=== PATIENT | male | born 1980 | race Caucasian/White ===

== ENCOUNTER → 2016-10-08 | Outpatient (CLI) | payer OTHER ==
[~2016-10-08] MED LIST: GABA800T PO; IBUP600T44 PO; MULT-506 PO; PREG1CAP28 PO
[2016-10-08 11:03] LABS: BASO % 0.5 %; BASO ABS # 0.02 K/uL (0-0.2); COMPLETE YES; EOS % 0.9 %; HEMATOCRIT 41.5 % (42-52); IG% 0.2 %; LYMPH % 36.5 %; LYMPH ABS # 1.54 K/uL (1.2-3.4); MEAN CELL VOLUME 85.6 fL (80-100); MEAN CORPUSCULAR HEMOGLOBIN 29.3 pg (25-34); MEAN CORPUSCULAR HGB CONC 34.2 g/dl (32-36); MEAN PLATELET VOLUME 10.8 fL (7.4-10.4); MONO % 12.6 %; NEUT % 49.3 %; PLATELET COUNT 166 K/uL (130-400); RED BLOOD COUNT 4.85 M/uL (4.7-6.1); WHITE BLOOD COUNT 4.22 K/uL (4.8-10.8)
[2016-10-08 12:50] LABS: ALB/GLOB RATIO 1.4 (0.9-2); ALKALINE PHOSPHATASE 42 U/L (45-117); ALT/SGPT 32 U/L (12-78); AST/SGOT 14 U/L (15-37); BLOOD UREA NITROGEN 16 mg/dl (7-18); BUN/CREATININE RATIO 16.1 (10-20); CALCIUM 8.7 mg/dl (8.5-10.1); CARBON DIOXIDE 29 mmol/L (21-32); CHLORIDE 105 mmol/L (98-107); GLUCOSE 88 mg/dl (70-99); POTASSIUM 3.8 mmol/L (3.5-5.1); RHEUMATOID FACTOR < 10.0 U/mL (0-15); SODIUM 141 mmol/L (136-145)
[2016-10-11 03:01] LABS: CHLAMYDIA TRACH RNA*** NOT DETECTED (NOT DETECTED); GC (NEIS GONORRHOEAE)RNA** NOT DETECTED (NOT DETECTED)
== END | disposition home or self-care (01) ==
LOC: C.LAB1850 09:53
PROVIDERS: ATTEND Internal Medicine Infectious Disease
DX: A69.20 Lyme disease, unspecified (principal); Z00.00 Encounter for general adult medical examination without abnormal findings

== ENCOUNTER → 2017-02-11 | Outpatient (CLI) | payer OTHER ==
[~2017-02-11] MED LIST changes: +MELO15TA4 PO; +ONDA4TAB65 PO
[2017-02-15 01:00] LABS: ANAPLASMA PHAGOCYTOPHIL IGG <1:64 (<1:64); ANAPLASMA PHAGOCYTOPHIL IGM <1:20 (<1:20); EHRLICHIA CHAFF IGG AB <1:64 (<1:64); EHRLICHIA CHAFF IGM AB <1:20 (<1:20)
[2017-02-16 22:40] LABS: 18KDIGG BAND NONREACTIVE (NONREACTIVE); 23KDIGG BAND NONREACTIVE (NONREACTIVE); 23KDIGM BAND REACTIVE (NONREACTIVE); 28KDIGG BAND NONREACTIVE (NONREACTIVE); 30KDIGG BAND NONREACTIVE (NONREACTIVE); 39KDIGG BAND NONREACTIVE (NONREACTIVE); 39KDIGM BAND NONREACTIVE (NONREACTIVE); 41KDIGG BAND NONREACTIVE (NONREACTIVE); 41KDIGM BAND NONREACTIVE (NONREACTIVE); 45KDIGG BAND NONREACTIVE (NONREACTIVE); 58KDIGG BAND REACTIVE (NONREACTIVE); 66KDIGG BAND NONREACTIVE (NONREACTIVE); 93KDIGG BAND NONREACTIVE (NONREACTIVE)
== END | disposition home or self-care (01) ==
LOC: C.LAB1850 10:30
PROVIDERS: ATTEND Internal Medicine Infectious Disease
DX: A69.20 Lyme disease, unspecified (principal)

== ENCOUNTER 2017-06-06 17:16 | Emergency (ER) | payer OTHER ==
[~2017-06-06] VITALS: Ht 175.3 cm; Wt 72.3 kg
[~2017-06-06 17:16] MED LIST changes: -MELO15TA4 PO; -ONDA4TAB65 PO; -PREG1CAP28 PO
[2017-06-06 17:34] VITALS: Ht 175.3 cm; Wt 72.3 kg
[2017-06-06] MEDS ORDERED: SODIUM CHLORIDE 0.9% 1000ML 1,000 ML IV STA (18:20)
[2017-06-06] MEDS ORDERED: ONDANSETRON INJ 2 MG/ML 2 ML VIAL IV STA (18:20)
[2017-06-06] MEDS ORDERED: SODIUM CHLORIDE 0.9% 1000ML 500 ML IV STA (18:20)
[2017-06-06] MEDS ORDERED: KETOROLAC TROMETHAMINE 30 MG/ML VIAL IV STA (18:20)
[2017-06-06] MEDS ORDERED: PREG1CAP28 PO (18:23)
[2017-06-06 19:14] LABS: URINE APPEARANCE CLEAR (CLEAR); URINE BILIRUBIN NEG (NEG); URINE COLOR YELLOW; URINE NITRITE NEG (NEG); URINE SPECIFIC GRAVITY 1.008 (1.000-1.030); UROBILINOGEN NEG (NEG); ZZUR CULT IF INDIC CLEAN CATCH NO
[2017-06-06 19:19] LABS: MANUAL MICROSCOPIC REQUIRED? NO; REVIEW REQ? NO
[2017-06-06 19:24] LABS: BASO % 0.2 %; BASO ABS # 0.01 K/uL (0-0.2); COMPLETE YES; EOS % 0.3 %; HEMATOCRIT 46.2 % (42-52); IG% 0.3 %; LYMPH % 42.3 %; LYMPH ABS # 2.43 K/uL (1.2-3.4); MEAN CELL VOLUME 88.2 fL (80-100); MEAN CORPUSCULAR HEMOGLOBIN 29.8 pg (25-34); MEAN CORPUSCULAR HGB CONC 33.8 g/dl (32-36); MONO % 8.7 %; NEUT % 48.2 %; PLATELET COUNT 187 K/uL (130-400); RED BLOOD COUNT 5.24 M/uL (4.7-6.1); WHITE BLOOD COUNT 5.75 K/uL (4.8-10.8)
[2017-06-06 19:50] LABS: BUN/CREATININE RATIO 9.1 (10-20); CREATININE 1.2 mg/dl (0.60-1.40); POTASSIUM 4.5 mmol/L (3.5-5.1)
[2017-06-06 19:53] LABS: ALB/GLOB RATIO 1.4 (0.9-2)
[2017-06-06] MEDS ORDERED: OPTIRAY 320 IV PRN (20:15)
--- NOTE | 2017-06-06 20:26 | DIAGNOSTIC IMAGING REPORT ---
ABD/PELVIS IV CONTRAST ONLY CT DOSE: 257.05 mGy.cm HISTORY: Pain ABD PAIN, POSS APPY, IV CONTRAST ONLY TECHNIQUE: Multiaxial CT images of the abdomen and pelvis were performed following the use of intravenous contrast. A dose lowering technique was utilized adhering to the principles of ALARA. COMPARISON STUDY: None. FINDINGS: Lung bases are clear. Liver spleen and pancreas enhance uniformly. Prior cholecystectomy. Kidneys are unremarkable. No evidence for hydronephrosis. The appendix is normal. Bowel pattern is nonobstructive. There may be several fluid-filled loops of small bowel suggesting a mild nonobstructive ileus. Bladder is midline. IMPRESSION: 1. Mild nonobstructive ileus. 2. Prior cholecystectomy. 3. Study is otherwise negative. 4. Normal appendix The above report was generated using voice recognition software. It may contain grammatical, syntax or spelling errors. Electronically signed by: Lake Deras M.D. 06/06/2017 8:25 PM Dictated Date/Time: 06/06/2017 8:21 PM
[2017-06-06 21:20] VITALS: BP 146/104; PULSE 92; TEMP 36.9; O2SAT 100
--- NOTE | 2017-06-06 21:26 | EMERGENCY ROOM VISIT NOTE ---
History Report prepared by Anant: Margo Alaniz Under the Supervision of: Dr. Fam Collins M.D. First contact with patient: 18:17 Chief Complaint: ABDOMINAL PAIN Stated Complaint: PAIN IN LOWER RIGHT SIDE, SWELLING UPPER GROIN Nursing Triage Summary: Right sided abd pain, nausea. Pain and burning in the groin for approx a month, see urgent care and was given abx. Pt states he is not sure the pain is related to the medication he was given. History of Present Illness The patient is a 36 year old male who presents to the Emergency Room with complaints of worsening right sided abdominal pain starting this morning. The patient states that yesterday he had discomfort, but it wasn't painful. He notes that he has had lower abdominal discomfort for a month and burning with urination. He reports that he finally decided yesterday to go to Urgent Care who thought it was an STD since his urine came back normal without an infection. He reports that they gave him 2 Azithromycin and a shot of something. He states that when he woke up this morning he had pain and swelling in his right side. 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 He notes the pain is worse sitting up and better lying down. He currently rates his pain as a 5/10 in severity. The patient complains of nausea this morning and states he took a Zofran. He denies penile discharge, fever, vomiting, injury, trauma, a history of kidney stones, and a family history of kidney stones. He states that he has had a Cholecystectomy. Source of History: patient Onset: this morning Position: abdomen (right) Symptom Intensity: 5/10 Quality: other (swelling) Timing: worsening Modifying Factors (Worsening): other (sitting up) Modifying Factors (Relieving): other (lying down) Associated Symptoms: + nausea, + urinary symptoms, No fevers, No vomiting Note: The patient denies penile discharge, injury, trauma, a history of kidney stones , and a family history of kidney stones Review of Systems See HPI for pertinent positives & negatives. A total of 10 systems reviewed and were otherwise negative. Past Medical & Surgical Medical Problems: (1) Depressive disorder (2) Generalized anxiety disorder (3) Opioid dependence (4) Psychotic disorder Surgical Problems: (1) Hx of cholecystectomy Family History Hypertension Social History Smoking Status: Former Smoker Alcohol Use: none Drug Use: none Marital Status: single Housing Status: lives alone Occupation Status: employed Current/Historical Medications Scheduled Pregabalin (Lyrica), 225 MG PO BID Allergies Coded Allergies: No Known Allergies (Unverified , 06/06/17) Physical Exam Vital Signs Date Time Temp Pulse Resp B/P (MAP) Pulse Ox O2 Delivery O2 Flow Rate FiO2 06/06/17 20:47 92 18 146/104 100 Room Air 06/06/17 20:20 78 18 131/94 100 Room Air 06/06/17 19:27 75 18 122/80 99 Room Air 06/06/17 19:00 70 06/06/17 17:34 36.9 99 16 135/91 99 Room Air Physical Exam GENERAL: Patient is in no acute distress. HEENT: No acute trauma, normocephalic atraumatic, mucous membranes moist, no nasal congestion, no scleral icterus. NECK: No stridor, no adenopathy, no meningismus, trachea is midline. LUNGS: Clear to auscultation bilaterally, no wheeze, no rhonchi, breath sounds equal. HEART: Without murmurs gallops or rubs, regular rate and rhythm. ABDOMEN: Soft, vague mild discomfort in RLQ with palpation, bowel sounds positive, no hernias, no peritonitis. BACK: Right flank discomfort with percussion and palpation. GROIN: No obvious hernia. No testicular swelling. Circumcised. No testicular tenderness. EXTREMITIES: No cyanosis or edema, full range of motion of all the joints without pain or difficulty, no signs for acute trauma. NEUROLOGIC: Oriented x 3, no acute motor or sensory deficits, no focal weakness. SKIN: No rash, no jaundice, no diaphoresis. Medical Decision & Procedures ER Provider Diagnostic Interpretation: Radiology results as stated below per my review and radiologist interpretation: ABD/PELVIS IV CONTRAST ONLY CT DOSE: 257.05 mGy.cm HISTORY: Pain ABD PAIN, POSS APPY, IV CONTRAST ONLY TECHNIQUE: Multiaxial CT images of the abdomen and pelvis were performed following the use of intravenous contrast. A dose lowering technique was utilized adhering to the principles of ALARA. COMPARISON STUDY: None. FINDINGS: Lung bases are clear. Liver spleen and pancreas enhance uniformly. Prior cholecystectomy. Kidneys are unremarkable. No evidence for hydronephrosis. The appendix is normal. Bowel pattern is nonobstructive. There may be several fluid-filled loops of small bowel suggesting a mild nonobstructive ileus. Bladder is midline. IMPRESSION: 1. Mild nonobstructive ileus. 2. Prior cholecystectomy. 3. Study is otherwise negative. 4. Normal appendix The above report was generated using voice recognition software. It may contain grammatical, syntax or spelling errors. Electronically signed by: Lake Deras M.D. 06/06/2017 8:25 PM Dictated Date/Time: 06/06/2017 8:21 PM Laboratory Results 06/06/17 19:13 Red Blood Count 5.24, Mean Corpuscular Volume 88.2, Mean Corpuscular Hemoglobin 29.8, Mean Corpuscular Hemoglobin Concent 33.8, Mean Platelet Volume 11.0, Neutrophils (%) (Auto) 48.2, Lymphocytes (%) (Auto) 42.3, Monocytes (%) (Auto) 8.7, Eosinophils (%) (Auto) 0.3, Basophils (%) (Auto) 0.2, Neutrophils # (Auto) 2.77, Lymphocytes # (Auto) 2.43, Monocytes # (Auto) 0.50, Eosinophils # (Auto) 0.02, Basophils # (Auto) 0.01 06/06/17 19:13 Test 06/06/17 18:20 06/06/17 19:13 Urine Color YELLOW Urine Appearance CLEAR (CLEAR) Urine pH 6.0 (4.5-7.5) Urine Specific Warren 1.008 (1.000-1.030) Urine Protein NEG (NEG) Urine Glucose (UA) NEG (NEG) Urine Ketones NEG (NEG) Urine Occult Blood NEG (NEG) Urine Nitrite NEG (NEG) Urine Bilirubin NEG (NEG) Urine Urobilinogen NEG (NEG) Urine Leukocyte Esterase NEG (NEG) White Blood Count 5.75 K/uL (4.8-10.8) Red Blood Count 5.24 M/uL (4.7-6.1) Hemoglobin 15.6 g/dL (14.0-18.0) Hematocrit 46.2 % (42-52) Mean Corpuscular Volume 88.2 fL (80-100) Mean Corpuscular Hemoglobin 29.8 pg (25-34) Mean Corpuscular Hemoglobin Concent 33.8 g/dl (32-36) Platelet Count 187 K/uL (130-400) Mean Platelet Volume 11.0 fL (7.4-10.4) Neutrophils (%) (Auto) 48.2 % Lymphocytes (%) (Auto) 42.3 % Monocytes (%) (Auto) 8.7 % Eosinophils (%) (Auto) 0.3 % Basophils (%) (Auto) 0.2 % Neutrophils # (Auto) 2.77 K/uL (1.4-6.5) Lymphocytes # (Auto) 2.43 K/uL (1.2-3.4) Monocytes # (Auto) 0.50 K/uL (0.11-0.59) Eosinophils # (Auto) 0.02 K/uL (0-0.5) Basophils # (Auto) 0.01 K/uL (0-0.2) RDW Standard Deviation 39.3 fL (36.4-46.3) RDW Coefficient of Variation 12.3 % (11.5-14.5) Immature Granulocyte % (Auto) 0.3 % Immature Granulocyte # (Auto) 0.02 K/uL (0.00-0.02) Anion Gap 4.0 mmol/L (3-11) Est Creatinine Clear Calc Drug Dose 84.3 ml/min Estimated GFR () 89.0 Estimated GFR (Non- 76.8 BUN/Creatinine Ratio 9.1 (10-20) Calcium Level 9.0 mg/dl (8.5-10.1) Total Bilirubin 0.4 mg/dl (0.2-1) Aspartate Amino Transf (AST/SGOT) 25 U/L (15-37) Alanine Aminotransferase (ALT/SGPT) 32 U/L (12-78) Alkaline Phosphatase 40 U/L (45-117) Total Protein 7.2 gm/dl (6.4-8.2) Albumin 4.2 gm/dl (3.4-5.0) Globulin 3.0 gm/dl (2.5-4.0) Albumin/Globulin Ratio 1.4 (0.9-2) Lipase 250 U/L (73-393) Urine dip is negative for infection and blood. Laboratory results reviewed by me. Medications Administered Medications (Trade) Dose Ordered Sig/Kimmie Route Start Time Stop Time Status Last Admin Dose Admin Sodium Chloride 500 ml @ 999 mls/hr Q31M STAT IV 06/06/17 18:20 06/06/17 19:03 DC 06/06/17 18:20 999 MLS/HR Ondansetron HCl (Zofran Inj) 4 mg NOW STAT IV 06/06/17 18:20 06/06/17 19:03 DC 06/06/17 19:24 4 MG Sodium Chloride 1,000 ml @ 200 mls/hr Q5H STAT IV 06/06/17 18:20 06/06/17 23:19 06/06/17 19:25 200 MLS/HR Ketorolac Tromethamine (Toradol Inj) 30 mg NOW STAT IV 06/06/17 18:20 06/06/17 19:03 DC 06/06/17 19:25 30 MG ED Course 1818: The patient was evaluated in room A12B. A complete history and physical exam was performed. 1819: Ordered Toradol Inj 30 mg IV, NSS 1000 ml @ 200 mls/hr IV, Zofran Inj 4 mg IV, NSS 500 ml @ 999 mls/hr IV. 2050: Reevaluated the patient. Discussed results and discharge instructions: he verbalized understanding and agreement. The patient is ready for discharge. Medical Decision Differential diagnoses include STD, hernia, renal colic, appendicitis, musculoskeletal pain, nerve impingement, renal failure, UTI. There is no leukocytosis or concerning anemia. No significant electrolyte abnormality, kidney failure or hepatitis. No evidence for pancreatitis. Urinalysis does not show hematuria or infection. Abdominal and pelvis CT does not show appendicitis or bowel obstruction. A mild ileus was suspected. On exam, there was no peritonitis, no evidence for hernia clinically. He was not toxic or febrile. The patient's right flank discomfort does seem tender with palpation and also it seems to worsen with certain movements. The pain may be musculoskeletal. The abdominal discomfort may be from the ileus noted on CT. He does not have a surgical abdomen. He is stable for discharge. A bland diet, rest, hydration was suggested. If his urinary issue does not resolve in a day or so since being treated for an STD, I have advised him to contact urology. He was given a referral. He can return here for worsening symptoms or if not improving as early appendicitis can be missed on CT. Impression Primary Impression: RLQ abdominal pain Additional Impression: Ileus Scribe Attestation The scribe's documentation has been prepared under my direction and personally reviewed by me in its entirety. I confirm that the note above accurately reflects all work, treatment, procedures, and medical decision making performed by me. Departure Information Dispostion Home / Self-Care Referrals Jose Roberto Camejo M.D. (PCP) Forms Call Back Authorization, HOME CARE DOCUMENTATION FORM, IMPORTANT VISIT INFORMATION Patient Instructions My [facility] Additional Instructions bland diet---crackers, soup, toast, gatorade rest fluids tylenol for pain call and set up urology appt if not improving in a 2-3 days lab testing today was ok appendix seemed ok on your CT scan return if worsening, have fever, or if vomiting Problem Qualifiers
== END 2017-06-06 21:05 | disposition home or self-care (01) ==
LOC: C.EDB 17:18 → C.EDA 21:05
DX: K56.7 Ileus, unspecified (principal); R10.31 Right lower quadrant pain; F32.9 Major depressive disorder, single episode, unspecified; F41.1 Generalized anxiety disorder; Z90.49 Acquired absence of other specified parts of digestive tract; Z87.891 Personal history of nicotine dependence; Z79.899 Other long term (current) drug therapy; Z82.49 Family history of ischemic heart disease and other diseases of the circulatory system

== ENCOUNTER 2019-07-12 00:41 | Inpatient (IN) ==
--- OUTSIDE RECORDS SUMMARY | 2019-07-12 00:43 | External Medical Summary | Continuity of Care Document ---
:1980 Author Name Dimitris Champion Address Unavailable Unavailable , Care Team Providers Name Role Phone [email or web address] Unavailable [email or web address] Unavailable Unavailable Unavailable Unavailable Unavailable Problems Vitamin D deficiency (268.9) (E55.9) Lyme disease (088.81) (A69.20) Allergies and Adverse Reactions No Known Drug Allergies (Allergy) Medications Mobic 15 MG Oral Tablet Refills: 0 Lyrica 50 MG Oral Capsule; TAKE 1 CAPSULE TWICE DAILY. Refills: 0 Doxycycline Monohydrate 100 MG Oral Caps ule; TAKE 1 CAPSULE TWICE DAILY WITH FOOD. DO Kiara English Start: 11-Feb-2017 Quantity: 56 Refills: 1 Zofran 4 MG Oral Tablet Refills: 0 Zanaflex CAPS Refills: 0 Procedures Procedures not documented Immunizations Immunizations not documented Family History Mother No pertinent family history (V49.89) (Z78.9) Status: Active Social History - Smoking Status Former smoker Plan of Treatment Planned Observations Planned Goals not documented Results No Known Results Results not documented Encounters Appointment; Chio Cotton M.D. 24-May-2017 10:00 Encounter Diagnosis: Problem not documented
[2019-07-12] MEDS ORDERED: LORazepam 2 MG/4 ML VIAL ONE (00:44)
[2019-07-12] MEDS ORDERED: fentaNYL citrate 100 MCG/2 ML VIAL ONE ×3 (00:44→12:43)
[2019-07-12] MEDS ORDERED: DIAZEPAM 5 MG/ML INJ 10ML VIAL ONE (00:51)
[2019-07-12] MEDS ORDERED: SODIUM CHLORIDE 0.9% 1000ML 1,000 ML IV SCH (01:00)
[2019-07-12] MEDS ORDERED: HYDROmorphone INJ 1 MG/ML SYRINGE IV STA ×3 (01:11→03:24)
[2019-07-12 01:22] LABS: Basophils # (auto) 0.01 K/uL (0-0.2); Basophils % (auto) 0.1 %; Eosinophils # (auto) 0.09 K/uL (0-0.5); Eosinophils % (auto) 1.1 %; Hematocrit (blood only) 36.7 % (42-52); Hemoglobin 12.6 g/dL (14.0-18.0); Immature Granulocytes # (auto) 0.04 K/uL (0.00-0.02); Immature Granulocytes % (auto) 0.5 %; Lymphocytes # (auto) 2.13 K/uL (1.2-3.4); Lymphocytes % (auto) 26.5 %; Mean Corpuscular Hemoglobin 30.4 pg (25-34); Mean Corpuscular Hgb Conc 34.3 g/dL (32-36); Mean Corpuscular Volume 88.6 fL (80-100); Mean Platelet Volume 10.6 fL (7.4-10.4); Monocytes # (auto) 0.72 K/uL (0.11-0.59); Neutrophils # (auto) 5.04 K/uL (1.4-6.5); Neutrophils % (auto) 62.8 %; Platelet Count 189 K/uL (130-400); RDW Coefficient of Variation 12.4 % (11.5-14.5); Red Blood Count 4.14 M/uL (4.7-6.1); White Blood Count 8.03 K/uL (4.8-10.8)
[2019-07-12 01:37] LABS: INR 1.1 (0.9-1.1); Prothrombin Time 10.9 Seconds (9.0-12.0)
[2019-07-12 01:42] LABS: BUN Creatinine Ratio 11.4 (10-20); Calcium 7.5 mg/dl (8.5-10.1); Creatinine Clr Calc Pharmacy 78.2 ml/min; Est GFR (African American) 78.9; Est GFR (Non-African American) 68.1; Potassium 3.6 mmol/L (3.5-5.1)
[2019-07-12] MEDS ORDERED: DIAZEPAM 5 MG/ML INJ 10ML VIAL IV STA (01:57)
[2019-07-12] MEDS ORDERED: IOVERSOL 100ml IV PRN (02:48)
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
[2019-07-12] MEDS ORDERED: HYDROmorphone INJ 1 MG/ML SYRINGE IV PRN (03:24)
[2019-07-12] MEDS ORDERED: ONDANSETRON INJ 2 MG/ML 2 ML VIAL IV PRN ×2 (04:35→14:59)
[2019-07-12] MEDS ORDERED: CEFAZOLIN 2000MG 2,000 MG/15 ML SYR IV ONE (04:35)
[2019-07-12] MEDS ORDERED: MoRPHine SULFATE 10 MG/ML CARP/VIAL IV PRN (04:35)
[2019-07-12] MEDS ORDERED: MoRPHine SULFATE 2 MG/ML CARP IV PRN (05:12)
[2019-07-12] MEDS ORDERED: MoRPHine SULFATE 4 MG/ML 1 ML CARP\\VIAL IV PRN (05:16)
[2019-07-12] MEDS: SODIUM CHLORIDE 0.9% 1000ML 1,000 ML IV SCH ×2 (05:32→17:26)
[2019-07-12] MEDS ORDERED: INFLUENZA ADMINISTRATION CHARGE ONE (06:15)
[2019-07-12] MEDS ORDERED: INFLUENZA VIRUS QUAD VACCINE 0.5 ML SYR IM ONE (06:15)
[2019-07-12] MEDS ORDERED: MoRPHine SULFATE 4 MG/ML 1 ML CARP\\VIAL IV STA (06:40)
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
[2019-07-12 06:44] LABS: Appearance Urine Clear (Clear); Bilirubin Urine Negative (Negative); Blood Urine Negative (Negative); Color Urine Yellow; Glucose Urine UA Negative (Negative); Ketones Urine Negative (Negative); Leukocyte Esterase Urine Negative (Negative); Nitrite Urine Negative (Negative); Protein Urine Negative (Negative); Specific Gravity Urine 1.026 (1.000-1.030); Urobilinogen Urine Negative (Negative); pH Urine 7.5 (4.5-7.5)
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
[2019-07-12] MEDS ORDERED: LORazepam 0.5 MG TAB PO SCH (08:15)
[2019-07-12] MEDS ORDERED: MIDAZOLAM HCL 1 MG/ML 2ML VIAL ONE ×2 (10:25→12:43)
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
[2019-07-12] MEDS ORDERED: GLYCOPYRROLATE 0.2 MG/ML VIAL ONE (12:42)
[2019-07-12] MEDS ORDERED: LARYING-O-JET KIT (LTA) ONE (12:42)
[2019-07-12] MEDS ORDERED: ROCURONIUM BROMIDE 10 MG/ML 5 ML VIAL ONE (12:42)
[2019-07-12] MEDS ORDERED: NEOSTIGMINE METHYLSULFATE 5 MG/5 ML SYR ONE (12:42)
[2019-07-12] MEDS ORDERED: LIDOCAINE HCL 2% 2 ML VIAL/AMP(20MG/ML) INFIL ONE (12:42)
[2019-07-12] MEDS ORDERED: ePHEDrine sulfate 50 MG/ML SYR ONE ×2 (12:42→14:02)
[2019-07-12] MEDS ORDERED: DEXAMETHASONE SOD INJ 4 MG/ML VIAL ONE (12:42)
[2019-07-12] MEDS ORDERED: PHENYLEPHRINE 100MCG/ML 5ML SYR ONE (12:42)
[2019-07-12] MEDS ORDERED: SUCCINYLCHOLINE CHLORIDE 20 MG/ML 10 ML VIAL ONE (12:42)
[2019-07-12] MEDS ORDERED: PROPOFOL IV EMULSION 10 MG/ML 20 ML VIAL IV ONE (12:42)
[2019-07-12] MEDS ORDERED: ONDANSETRON INJ 2 MG/ML 2 ML VIAL ONE (12:42)
--- NOTE | 2019-07-12 12:53 | Anesthesiology Consultation ---
Date of Service July 12, 2019 Assessment & Plan Chart Review Chart Review: Acceptable Risk for Surgery and Patient NOT seen in Pre Admission Testing Consults Requested none ASA ASA2 Proposed Anesthesia Anesthesia Type: General Risk / Benefits Reviewed With: PT / POA / Parent / Guardian, Accepts Plan and Informed Consent Obtained History Surgery Operation Date: 07/12/19 12:00 Proposed Procedures p Left Intramedullary Oscar Midshaft Femur Fracture - Joshua Rice, Height/Weight Height: 5 ft 10 in Weight: 76.3 kg Allergies Allergy/AdvReac Type Severity Reaction Status Date / Time No Known Allergies Allergy Verified 07/12/19 01:01 Medications Home Medications Medication Instructions Recorded Confirmed Last Taken Unknown Suppliment 1 dose PO DIRECTED 07/12/19 07/12/19 Unknown buspirone 15 mg PO DAILY 07/12/19 07/12/19 Unknown doxepin 50 mg PO HS 07/12/19 07/12/19 Unknown fluoxetine 40 mg PO QAM 07/12/19 07/12/19 Unknown gabapentin 800 mg PO QID 07/12/19 07/12/19 Unknown meloxicam 15 mg PO DAILY 07/12/19 07/12/19 Unknown pregabalin [Lyrica] 150 mg PO BID 07/12/19 07/12/19 Unknown quetiapine 200 mg PO DAILY 07/12/19 07/12/19 Unknown Active Medications Generic Name Dose Route Start Last Admin Trade Name Freq PRN Reason Stop Dose Admin Sodium Chloride 1,000 mls @ 125 mls/hr 07/12/19 04:35 07/12/19 05:32 Nss 1000ml IV 08/11/19 04:34 125 mls/hr .Q8H CATALINA Administration Lorazepam 0.5 mg 07/12/19 08:15 07/12/19 08:22 Ativan PO 08/11/19 08:14 0.5 mg DAILY CATALINA Administration Morphine Sulfate 4 mg 07/12/19 05:16 07/12/19 05:28 Morphine Sulfate IV 07/26/19 05:15 4 mg Q4HWA PRN Administration Pain NPO Date Last Intake of Fluids: 07/12/19 Time Last Intake of Fluids: 11:45 Date Last Intake of Solids: 07/11/19 Time Last Intake of Solids: 17:00 Past Medical History Medical History Anxiety Depression Exercise / Class Metabolic Activity II 4-5 Yardwork/Stairs/Walk up hill Past Family History Family History Other No significant family history Past Surgical History Surgical History Hx of cholecystectomy Past Anesthesia History No Hx of Anesthesia Complications and No Family Hx of Anesthesia Complications History of PONV No Hx of PONV and No Hx of Motion Sickness Social History Smoking Status: Never smoker tobacco type: smokeless tobacco Do You Dip or Chew Tobacco: Yes (1 can q2-3days) Hx Alcohol Use: No Hx Substance Use: Yes substance use type: former substance user and methamphetamine Last Used Substance Other:: pt denies recent drug use Physical Exam Vital Signs Last Vital Signs Temp 37 C 07/12/19 12:48 Pulse 83 07/12/19 12:48 Resp 20 07/12/19 12:48 BP 115/72 07/12/19 12:48 Pulse Ox 96 07/12/19 12:48 Constitutional not obese ENMT Mouth: no dentition abnormality Thyromental Distance: > or= 3.5 Finger Breadths Mallampati Class: II Neck normal visual inspection and trachea midline; neck extension not limited Respiratory normal respiratory effort Auscultation: lungs clear to auscultation bilaterally Cardiovascular Rate/Rhythm: regular rate and regular rhythm Heart Sounds: no murmur Vessels: no carotid bruit Musculoskeletal Spine: normal cervical ROM Neurologic moves all extremities Motor/Sensory: no sensory deficit Psychiatric Orientation: alert and oriented x 3 Testing Laboratory Results 07/12/19 01:10 07/12/19 01:10 PT 10.9 Seconds (9.0-12.0) 07/12/19 01:10 INR 1.1 (0.9-1.1) 07/12/19 01:10 Urine Color Yellow 07/12/19 06:00 Urine Appearance Clear (Clear) 07/12/19 06:00 Urine pH 7.5 (4.5-7.5) 07/12/19 06:00 Ur Specific [place] 1.026 (1.000-1.030) 07/12/19 06:00 Urine Protein Negative (Negative) 07/12/19 06:00 Urine Glucose (UA) Negative (Negative) 07/12/19 06:00 Urine Ketones Negative (Negative) 07/12/19 06:00 Urine Nitrite Negative (Negative) 07/12/19 06:00 Ur Leukocyte Esterase Negative (Negative) 07/12/19 06:00 Blood Type B Positive 07/12/19 01:10 Antibody Screen NEGATIVE 07/12/19 01:10
--- NOTE | 2019-07-12 12:56 | History & Physical Bridge Note ---
Date of Service July 12, 2019 History & Physical Bridge Note I have examined the patient, reviewed the History & Physical and in the interval since the performance of the History & Physical I have noted the following changes of clinical significance: no changes noted
[2019-07-12] MEDS ORDERED: CEFAZOLIN 2,000 MG/15 ML IV PUSH IV ONE (13:04)
[2019-07-12] MEDS ORDERED: HYDROmorphone INJ 2 MG/ML SYR/VIAL ONE (13:27)
[2019-07-12] MEDS ORDERED: DOCUSATE SODIUM 100 MG CAP PO PRN (13:37)
[2019-07-12] MEDS ORDERED: POLYETHYLENE (MIRALAX) 17 GM PACK PO PRN (13:37)
[2019-07-12] MEDS ORDERED: CALCIUM GLUCONATE 10% 1,000 MG in SODIUM CHLORIDE 0.9% 50 ML IV STA (13:45)
[2019-07-12] MEDS ORDERED: PROMETHAZINE HCL 12.5 MG in SODIUM CHLORIDE 0.9% 50 ML IV PRN (14:59)
[2019-07-12] MEDS ORDERED: ATROPINE SULFATE 0.1 MG/ML 10ML SYR IV PRN (14:59)
[2019-07-12] MEDS ORDERED: FLUMAZENIL 0.1 MG/1 ML 10 ML VIAL IV PRN (14:59)
[2019-07-12] MEDS ORDERED: NALOXONE HCL 0.4 MG/1 ML VIAL/CARP IV PRN ×3 (14:59→17:17)
[2019-07-12] MEDS ORDERED: ePHEDrine sulfate 50 MG/ML AMP ONE (15:00)
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
[2019-07-12] MEDS ORDERED: MAGNESIUM HYDROXIDE SUSP 30 ML UDC PO PRN (15:36)
[2019-07-12] MEDS ORDERED: bisacodyL 10 MG SUPP PR PRN (15:36)
--- NOTE | 2019-07-12 15:36 | Fluoroscopy Report ---
FL femur right 2V CLINICAL HISTORY: Fracture IM [facility] COMPARISON STUDY: X-ray study dated 07/12/2019 FLUOROSCOPY TIME: 7 minutes 2 seconds. NUMBER OF FLUOROSCOPIC IMAGES: 6 FINDINGS: There is been internal fixation of the comminuted mid femoral shaft fracture with a intrame dullary jerman fixated with 2 screws proximally and 2 screws distally. IMPRESSION: Internally fixated comminuted fracture the mid femoral shaft. Electronically signed by: Norman Chong M.D. 07/12/2019 3:34 PM
[2019-07-12] MEDS: HYDROmorphone INJ 1 MG/ML SYRINGE IV PRN ×9 (16:01→22:06)
[2019-07-12] MEDS ORDERED: D5W AND 1/2NSS 1,000 ML IV SCH (17:17)
--- NOTE | 2019-07-12 17:27 | Anesthesiology Progress Note ---
Date of Service July 12, 2019 Anesthesia Post Procedure Vital Signs Vital Signs: Temp Pulse Pulse Pulse Pulse Resp BP 07/12/19 17:00 36.8 C 74 13 07/12/19 16:55 36.8 C 72 10 L 07/12/19 16:45 82 18 07/12/19 16:35 95 H 16 07/12/19 16:25 97 H 18 07/12/19 16:15 82 15 07/12/19 16:05 98 H 21 07/12/19 15:55 97 H 19 07/12/19 15:45 89 12 07/12/19 15:32 36.2 C L 83 15 07/12/19 12:48 37 C 83 20 07/12/19 07:16 36.7 C 81 16 07/12/19 04:30 36.6 C 75 18 07/12/19 04:00 72 15 113/77 07/12/19 03:45 79 20 129/89 07/12/19 03:30 83 13 126/85 07/12/19 03:15 77 13 146/88 H 07/12/19 03:06 83 15 147/96 H 07/12/19 02:45 13 138/102 H 07/12/19 02:30 74 15 122/81 07/12/19 02:15 68 13 114/75 07/12/19 02:11 71 14 123/77 07/12/19 02:00 74 16 130/95 07/12/19 01:52 85 12 134/93 07/12/19 01:48 75 14 134/93 07/12/19 01:15 75 15 127/80 07/12/19 01:00 71 13 131/91 07/12/19 00:48 37.1 C 82 15 129/101 H BP Pulse Ox 07/12/19 17:00 126/78 97 07/12/19 16:55 133/78 97 07/12/19 16:45 139/92 98 07/12/19 16:35 144/75 H 98 07/12/19 16:25 142/95 H 100 07/12/19 16:15 135/84 100 07/12/19 16:05 142/101 H 100 07/12/19 15:55 143/90 H 100 07/12/19 15:45 134/92 98 07/12/19 15:32 120/77 100 07/12/19 12:48 115/72 96 07/12/19 07:16 114/71 96 07/12/19 04:30 105/72 100 07/12/19 04:00 100 07/12/19 03:45 100 07/12/19 03:30 100 07/12/19 03:15 100 07/12/19 03:06 100 07/12/19 02:45 100 07/12/19 02:30 100 07/12/19 02:15 99 07/12/19 02:11 100 07/12/19 02:00 100 07/12/19 01:52 100 07/12/19 01:48 100 07/12/19 01:15 99 07/12/19 01:00 97 07/12/19 00:48 100 Pain Intensity Right Leg: Pain Intensity: 5 Transfer of Care Handoff Completed per policy Notes Mental Status: alert / awake / arousable Patient Amnestic to Procedure: Yes Nausea / Vomiting: adequately controlled Pain: adequately controlled Airway Patency, RR, SpO2: stable & adequate BP & HR: stable & adequate Hydration State: stable & adequate Anesthetic Complications: no major complications apparent
[2019-07-12] MEDS: OXYCODONE HCL IR 5 MG TAB (IMMEDIATE RELEASE) PO PRN ×2 (17:38→23:26)
[2019-07-12] MEDS ORDERED: Nursing to Pharmacy Communication ONE (18:10)
[2019-07-12] MEDS ORDERED: LORazepam 0.5 MG TAB PO STA (21:42)
[2019-07-12] MEDS: QUETIAPINE FUMARATE 200 MG TAB PO SCH (22:06)
[2019-07-12] MEDS: CEFAZOLIN 2000MG 2,000 MG/15 ML SYR IV SCH (22:15)
[2019-07-12] MEDS: PREGABALIN 150 MG CAP PO SCH (22:16)
[2019-07-12] MEDS: DOCUSATE SODIUM 100 MG CAP PO SCH (22:16)
[2019-07-12] MEDS: ACETAMINOPHEN 500 MG TAB PO SCH (22:17)
[2019-07-12] MEDS: SENNA 8.6 MG TAB PO SCH (22:17)
[2019-07-13] MEDS: ACETAMINOPHEN 500 MG TAB PO SCH ×3 (05:51→21:12)
[2019-07-13] MEDS: CEFAZOLIN 2000MG 2,000 MG/15 ML SYR IV SCH (05:51)
[2019-07-13] MEDS: HYDROmorphone INJ 1 MG/ML SYRINGE IV PRN ×4 (05:56→18:07)
[2019-07-13 07:12] LABS: Creatinine Clr Calc Pharmacy 93.9 ml/min; Est GFR (African American) 98.6; Est GFR (Non-African American) 85.1
[2019-07-13] MEDS: PREGABALIN 150 MG CAP PO SCH ×2 (07:33→20:31)
[2019-07-13] MEDS: OXYCODONE HCL IR 5 MG TAB (IMMEDIATE RELEASE) PO PRN ×4 (07:33→20:26)
[2019-07-13] MEDS: FLUOXETINE HCL 20 MG CAP PO SCH (07:35)
[2019-07-13] MEDS: DOCUSATE SODIUM 100 MG CAP PO SCH ×2 (07:36→20:27)
--- NOTE | 2019-07-13 08:48 | Anesthesiology Progress Note ---
Date of Service July 13, 2019 Anesthesia Post Procedure Vital Signs Vital Signs: Temp Pulse Pulse Pulse Resp BP Pulse Ox 07/13/19 07:01 36.9 C 84 18 111/67 98 07/13/19 03:27 36.7 C 70 16 95/60 L 96 07/12/19 23:26 37.3 C 83 16 146/64 H 96 07/12/19 22:37 97 H 123/71 07/12/19 20:16 36.9 C 103 H 20 140/77 96 07/12/19 19:21 37.2 C 106 H 18 131/85 97 07/12/19 18:18 36.9 C 105 H 22 113/72 97 07/12/19 17:44 36.6 C 99 H 18 154/85 H 98 07/12/19 17:00 36.8 C 74 13 126/78 97 07/12/19 16:55 36.8 C 72 10 L 133/78 97 07/12/19 16:45 82 18 139/92 98 07/12/19 16:35 95 H 16 144/75 H 98 07/12/19 16:25 97 H 18 142/95 H 100 07/12/19 16:15 82 15 135/84 100 07/12/19 16:05 98 H 21 142/101 H 100 07/12/19 15:55 97 H 19 143/90 H 100 07/12/19 15:45 89 12 134/92 98 07/12/19 15:32 36.2 C L 83 15 120/77 100 07/12/19 12:48 37 C 83 20 115/72 96 Pain Intensity Right Leg: Pain Intensity: 10 Notes Mental Status: alert / awake / arousable and participated in evaluation Patient Amnestic to Procedure: Yes Nausea / Vomiting: adequately controlled Pain: adequately controlled Airway Patency, RR, SpO2: stable & adequate BP & HR: stable & adequate Hydration State: stable & adequate Anesthetic Complications: no major complications apparent and Pt Satisfied with anesthetic care
[2019-07-13] MEDS ORDERED: QUETIAPINE FUMARATE 200 MG TAB PO SCH (09:00)
[2019-07-13 09:11] LABS: Basophils # (auto) 0.01 K/uL (0-0.2); Basophils % (auto) 0.1 %; Eosinophils # (auto) 0.02 K/uL (0-0.5); Eosinophils % (auto) 0.2 %; Hematocrit (blood only) 35.3 % (42-52); Hemoglobin 11.8 g/dL (14.0-18.0); Immature Granulocytes # (auto) 0.03 K/uL (0.00-0.02); Immature Granulocytes % (auto) 0.3 %; Lymphocytes # (auto) 1.31 K/uL (1.2-3.4); Lymphocytes % (auto) 12.9 %; Mean Corpuscular Hemoglobin 29.8 pg (25-34); Mean Corpuscular Hgb Conc 33.4 g/dL (32-36); Mean Corpuscular Volume 89.1 fL (80-100); Mean Platelet Volume 11.1 fL (7.4-10.4); Monocytes # (auto) 1.19 K/uL (0.11-0.59); Monocytes % (auto) 11.7 %; Neutrophils # (auto) 7.62 K/uL (1.4-6.5); Neutrophils % (auto) 74.8 %; Platelet Count 217 K/uL (130-400); RDW Coefficient of Variation 12.8 % (11.5-14.5); RDW Standard Deviation 41.6 fL (36.4-46.3); Red Blood Count 3.96 M/uL (4.7-6.1); White Blood Count 10.18 K/uL (4.8-10.8)
--- NOTE | 2019-07-13 12:45 | Orthopedic Progress Note ---
Date of Service July 13, 2019 Assessment & Plan (1) Femur fracture, right: POD#1 Open Reduction Internal Fixation with Intramedullary Oscar Right Femur Fracture -Pain management-having a lot of pain this morning. Pain management consult has been placed -PT/OT-TTWB RLE -DVT prophylaxis-Lovenox 40mg SQ Q24H -D/C planning Subjective Patient is POD#1 right femur fracture IM nailing. Having a lot of pain this morning. Pain management consult has been placed. Not having any chest pain, sob, wheezing, n/v/d, headaches, dizziness. Does have c/o left sided rib pain as well, chest CT and x-ray were done yesterday with no rib fracture. Review of Systems Review of Systems: All systems reviewed & are unremarkable except as noted in HPI & below Physical Exam Physical Exam: Dressings to right leg are c/d/i. No calf tenderness. Distally n/v status and sensation intact. Toes and foot mobile. Constitutional: well developed and well nourished; no acute distress Results & Data Vital Signs (Past 12 Hours) Vital Signs Temp Pulse Resp BP Pulse Ox 07/13/19 11:06 37.1 C 84 18 105/62 99 07/13/19 07:01 36.9 C 84 18 111/67 98 07/13/19 03:27 36.7 C 70 16 95/60 L 96 (1) Femur fracture, right Encounter type: initial encounter Femur location: shaft Fracture alignment: displaced Fracture morphology: comminuted Fracture type: closed Qualified Code(s): S72.351A - Displaced comminuted fracture of shaft of right femur, initial encounter for closed fracture
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
[2019-07-13] MEDS ORDERED: CYCLOBENZAPRINE HCL 10 MG TAB PO PRN (13:43)
[2019-07-13] MEDS: KETOROLAC 30 MG/ML VIAL IV SCH ×2 (17:17→23:26)
[2019-07-13] MEDS: ENOXAPARIN INJ 40 MG/0.4 ML SYR SQ SCH (18:35)
[2019-07-13] MEDS: QUETIAPINE FUMARATE 200 MG TAB PO SCH (20:28)
[2019-07-13] MEDS: SENNA 8.6 MG TAB PO SCH (20:28)
[2019-07-13] MEDS: DOXEPIN HCL 50 MG CAPSULE PO SCH (20:29)
[2019-07-14] MEDS: KETOROLAC 30 MG/ML VIAL IV SCH ×2 (06:05→12:46)
[2019-07-14] MEDS: ACETAMINOPHEN 500 MG TAB PO SCH ×3 (06:05→21:52)
[2019-07-14] MEDS: HYDROmorphone INJ 1 MG/ML SYRINGE IV PRN ×3 (07:35→18:44)
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
[2019-07-14 09:05] LABS: Basophils # (auto) 0.01 K/uL (0-0.2); Basophils % (auto) 0.2 %; Eosinophils # (auto) 0.11 K/uL (0-0.5); Eosinophils % (auto) 1.7 %; Hematocrit (blood only) 30.2 % (42-52); Hemoglobin 10.3 g/dL (14.0-18.0); Immature Granulocytes # (auto) 0.01 K/uL (0.00-0.02); Immature Granulocytes % (auto) 0.2 %; Lymphocytes # (auto) 2.12 K/uL (1.2-3.4); Lymphocytes % (auto) 32.2 %; Mean Corpuscular Hemoglobin 30.3 pg (25-34); Mean Corpuscular Hgb Conc 34.1 g/dL (32-36); Mean Corpuscular Volume 88.8 fL (80-100); Mean Platelet Volume 10.1 fL (7.4-10.4); Monocytes # (auto) 0.56 K/uL (0.11-0.59); Monocytes % (auto) 8.5 %; Neutrophils # (auto) 3.77 K/uL (1.4-6.5); Neutrophils % (auto) 57.2 %; Platelet Count 160 K/uL (130-400); White Blood Count 6.58 K/uL (4.8-10.8)
[2019-07-14] MEDS: LORazepam 0.5 MG/1 ML VIAL IV PRN ×2 (09:06→19:33)
[2019-07-14 09:21] LABS: Calcium 7.7 mg/dl (8.5-10.1); Creatinine Clr Calc Pharmacy 91.4 ml/min; Est GFR (African American) 95.4; Est GFR (Non-African American) 82.3; Magnesium 1.9 mg/dl (1.8-2.4); Potassium 3.7 mmol/L (3.5-5.1)
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
[2019-07-14] MEDS: DULOXETINE HCL 30 MG CAP PO SCH (09:52)
[2019-07-14] MEDS: PREGABALIN 150 MG CAP PO SCH ×2 (09:52→21:50)
[2019-07-14] MEDS: DOCUSATE SODIUM 100 MG CAP PO SCH ×2 (09:52→21:50)
[2019-07-14] MEDS: FLUOXETINE HCL 20 MG CAP PO SCH (09:52)
[2019-07-14] MEDS: OXYCODONE HCL IR 5 MG TAB (IMMEDIATE RELEASE) PO PRN ×2 (10:54→15:33)
[2019-07-14] MEDS ORDERED: CALCIUM GLUCONATE 10% 1,000 MG in SODIUM CHLORIDE 0.9% 50 ML IV STA (11:12)
[2019-07-14] MEDS: POLYETHYLENE (MIRALAX) 17 GM PACK PO SCH (12:33)
[2019-07-14] MEDS ORDERED: KETOROLAC TROMETHAMINE 15 MG/ML VIAL IV PRN (13:54)
[2019-07-14] MEDS: ENOXAPARIN INJ 40 MG/0.4 ML SYR SQ SCH (15:27)
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
[2019-07-14] MEDS: DOXEPIN HCL 50 MG CAPSULE PO SCH (21:51)
[2019-07-14] MEDS: SENNA 8.6 MG TAB PO SCH (21:51)
[2019-07-14] MEDS: OXYCODONE HCL 10 MG TABCR (OXYCONTIN) PO SCH (21:51)
[2019-07-14] MEDS: QUETIAPINE FUMARATE 200 MG TAB PO SCH (21:52)
[2019-07-14] MEDS: CALCIUM CARBONATE 500 MG CHEWABLE TAB PO SCH (21:53)
[2019-07-15] MEDS: ACETAMINOPHEN 500 MG TAB PO SCH (05:29)
[2019-07-15] MEDS: OXYCODONE HCL IR 5 MG TAB (IMMEDIATE RELEASE) PO PRN ×2 (05:31→09:42)
[2019-07-15] MEDS: LORazepam 0.5 MG/1 ML VIAL IV PRN (05:53)
[2019-07-15 07:36] LABS: Hematocrit (blood only) 29.8 % (42-52); Hemoglobin 10.1 g/dL (14.0-18.0); Mean Corpuscular Hemoglobin 30.3 pg (25-34); Mean Corpuscular Hgb Conc 33.9 g/dL (32-36); Mean Corpuscular Volume 89.5 fL (80-100); Mean Platelet Volume 10.3 fL (7.4-10.4); Platelet Count 159 K/uL (130-400); RDW Coefficient of Variation 12.7 % (11.5-14.5); RDW Standard Deviation 40.7 fL (36.4-46.3); Red Blood Count 3.33 M/uL (4.7-6.1); White Blood Count 5.01 K/uL (4.8-10.8)
[2019-07-15 08:09] LABS: BUN Creatinine Ratio 11.3 (10-20); Calcium 8.2 mg/dl (8.5-10.1); Creatinine Clr Calc Pharmacy 101.4 ml/min; Est GFR (African American) 108.1; Est GFR (Non-African American) 93.3; Potassium 3.8 mmol/L (3.5-5.1)
[2019-07-15] MEDS: PREGABALIN 150 MG CAP PO SCH (08:48)
[2019-07-15] MEDS: FLUOXETINE HCL 20 MG CAP PO SCH (08:48)
[2019-07-15] MEDS: DULOXETINE HCL 30 MG CAP PO SCH (08:48)
[2019-07-15] MEDS: CALCIUM CARBONATE 500 MG CHEWABLE TAB PO SCH (08:48)
[2019-07-15] MEDS: DOCUSATE SODIUM 100 MG CAP PO SCH (08:48)
[2019-07-15] MEDS: POLYETHYLENE (MIRALAX) 17 GM PACK PO SCH (08:49)
[2019-07-15] MEDS: OXYCODONE HCL 10 MG TABCR (OXYCONTIN) PO SCH (08:52)
--- NOTE | 2019-07-15 10:41 | Orthopedic Progress Note ---
Date of Service July 15, 2019 Assessment & Plan (1) Femur fracture, right: POD#3 Open Reduction Internal Fixation with Intramedullary Oscar Right Femur Fracture -Planning for discharge to home today. Patient will be sent home with OxyContin 10 mg p.o. twice daily short-term and oxycodone 5 to 10 mg p.o. every 4 6 hours as needed as far as narcotics. A short-term dosing of lorazepam 0.5 mg p.o. twice daily as needed muscle spasms has been written for. Narcan prescription is also been written for. Please see Dr. Vinson's recommendations addended to Dr. Glass's note from yesterday. -PT/OT-TTWB RLE -DVT prophylaxis-Lovenox 40mg SQ Q24H x2 weeks -D/C planning -patient states that he will be going to stay at his mother's home which is approximately 40 minutes away. He will be receiving home health services. Plan for follow-up in 10 [address] Rice. Subjective Patient sitting up in bed alert and oriented. He looks more comfortable today. No new complaints. He to go home. He was seen by Dr Glass yesterday from [facility]. Commendations were made for his Prozac and Cymbalta amongst other medications. Patient was wondering and asking questions about certain changes to his medications. I reached out to who is covering this weekend. She has reviewed Dr. Glass's recommendations made changes to help simplify this for the patient. Patient states that he has an appointment early July with psychiatry. Physical Exam Physical Exam: Dressings are clean, dry, intact. Thigh swelling seems to be a little bit less today. Calves are soft and nontender. Neurovascular intact. Toes are mobile. Results & Data Vital Signs (Past 12 Hours) Vital Signs Temp Pulse Resp BP Pulse Ox 07/15/19 07:47 37.1 C 89 16 97/58 L 95 07/14/19 23:54 37.1 C 87 16 104/63 95 (1) Femur fracture, right Encounter type: initial encounter Femur location: shaft Fracture alignment: displaced Fracture morphology: comminuted Fracture type: closed Qualified Code(s): S72.351A - Displaced comminuted fracture of shaft of right femur, initial encounter for closed fracture
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
== END 2019-07-15 12:55 | disposition home health service (06) | DRG 481 ==
LOC: ED 00:41 → 3W 03:19

== ENCOUNTER 2023-03-13 13:46 | Inpatient (IN) ==
--- NOTE | 2023-03-13 14:06 | Emergency Department Note ---
Impression & Plan Overdose, Fracture of 5th metatarsal, Bradycardia, Suicide attempt ED Provider Note NAME: SIMONA RIBERA AGE: 42 SEX: M : 1980 ARRIVES VIA: Ambulance INFORMANT: Patient, ED PROVIDER(S): Jose Lara MD CHIEF COMPLAINT: Overdose MEDICAL DECISION MAKING: Patient presents due to concern for overdose. The patient is somnolent but arousable and does not follow for extremities. The patient was ordered IV and IV fluids tox labs atropine pacer pads were placed to be used as needed. Screening chest x-ray performed along with a CT head and cervical spine. The patient given his history of propranolol with associated bradycardia the patient was ordered glucagon 5 mg IV, calcium 2 g IV as well as magnesium 2 g to be given over 30 minutes. Conveyed this to the nurse. Patient's initial QT on EKG was prolonged at 580. Patient CT of the head and cervical spine are negative. Patient has a normal white count hemoglobin and platelet count. Kidney function is unremarkable. Patient's total CK is normal. Troponin is not elevated. Salicylate Tylenol alcohol negative. COVID-negative. Patient did have a an ankle x-ray as well as clavicle x-ray as the patient did have an abrasion to the right clavicle as well as some left ankle swelling. Clavicle x-ray negative. Chest x-ray is clear. Given the patient's significant somnolence although again the patient is arousable with the associated reported use of barbiturates and Xanax tonight with the patient may go home at this time. I did speak the on- call hospitalist service Iftikhar Nguyen PA-C as well as Dr. Steele. Patient was admitted to the medicine service. Of note the patient's fifth metatarsal fracture was deferred for splint or boot given the patient's suicidality. Critical Care: I have personally spent 37 minutes of critical care time in direct management of this patient. This includes bedside care, interpretation of diagnostic studies, and testing, discussion with consultants, patient, and family members, and other require inpatient management activities. This 37 minutes is in excess of all separately billable procedures. Definitive Fracture Care note: Dx: Left fifth metatarsal fracture Plan: Immobilization, rest, ice, elevation, analgesia, orthopedic follow up in 3-5 days. Prior /Outside records reviewed: I did review a discharge summary from June 2019. Patient was seen due to concern for right femur fracture at that time Differential diagnosis: Overdose, toxicologic, infection, hypoglycemia, electrolyte abnormalities, cardiac sources, intracerebral event, neurologic, trauma, as well as other pathologies. Diagnostics, as interpreted by me: ECG: Sinus bradycardia, rate of 42, normal RI and QRS, prolonged QT, normal axis, T wave versions anteriorly and laterally. Repeat EKG interpreted by me Sinus bradycardia, rate of 54, normal RI and QRS, prolonged QT although this is slightly improved compared to prior. T wave inversions anteriorly noted. Cardiac monitoring: An order was placed for continuous cardiac monitoring. The monitor shows a rate of 45 with bradycardic and regular rhythm. Patient was placed on pulse oximetry Medical decision rules: None Imaging studies: See below I informally reviewed the patient's clavicle x-ray which shows no obvious fracture or dislocation. I informally reviewed the patient's CT of the head which does not show any obvious ICH. HPI: The history is limited to due to nursing reports with the patient can provide. The patient does admit to overdosing on barbiturates and Xanax. Patient does state that he took the meds today but is unable to tell me how much and when. Patient's nursing report is that the patient would like this for several days. He did present with additional medications with omeprazole, clonidine, propranolol, gabapentin, as well as other supplements. The patient does admit to taking the medication as an attempted overdose. PAST MEDICAL HISTORY: See Below PAST SURGICAL HISTORY: See Below SOCIAL HISTORY: See Below HOME MEDICATIONS: See Below ALLERGIES: See Below VITALS: See Below PHYSICAL EXAMINATION: GENERAL: Somnolence, waveform capnometer in place EYE EXAM: Normal conjunctiva. PERRL, no anisocoria and EOM's grossly intact w/o pain. NECK: Supple, no nuchal rigidity, no adenopathy, non-tender. No signs of meningismus. FROM of the neck with good chin to chest and neck extension. No stridor. Chest: Abrasion noted to the right collarbone. LUNGS: Clear to auscultation. Normal chest wall mechanics. HEART: Bradycardic and regular, no MRG. ABDOMEN: Abdomen soft, non-tender, no masses, no rebound or guarding. BACK: No CVA TTP. No pain or overlying skin changes to the posterior chest back thoracic or lumbar spine. No obvious step-offs SKIN: No rashes and no bruising. UPPER EXTREMITIES: Upper extremities are grossly normal. LOWER EXTREMITIES: Left ankle swelling noted. No obvious deformity. NEURO EXAM: Opens eyes to voice, does follow basic commands moves all 4 extremities Past Med/Surg History Medical History Anemia Anxiety Closed right femoral fracture Requiring open reduction and internal fixation with intramedullary demetrice 07/12/19 Depression Depressive disorder (04/01/11) Exercise-induced asthma Gastritis Generalized anxiety disorder (04/01/11) History of Lyme disease Migraines Opioid dependence (04/01/11) Psychotic disorder (04/01/11) PTSD (post-traumatic stress disorder) Seasonal allergies Substance abuse Tobacco use Surgical History H/O knee surgery History of surgery on lower extremity Hx of cholecystectomy Family History Father Hypertension Dyslipidemia Heart disease Other No significant family history Social History Smoking Status: Unknown if ever smoked Do You Dip or Chew Tobacco: Yes (1 can q2-3days); Hx Substance Use: Yes Last Used Substance Other:: pt denies recent drug use Substance Use Type Other:: unknown Preferred Language: Lao Communication Ability: Effective Massage Operator Required: No Beliefs That Will Affect Care: None marital status: Current Living Situation: Other Current Living Situation Comment: with2 friends Feels Safe at Home: Yes Assistive Devices: None Allergies Allergies Allergy/AdvReac Type Severity Reaction Status Date / Time chlorpromazine Allergy Verified 03/10/23 10:32 [From Thorazine] Home Meds Home Medications Medication Instructions Recorded Confirmed cyclobenzaprine 10 mg tablet 10 mg PO HS 05/28/22 03/13/23 docusate sodium 250 mg capsule 250 mg PO DAILY 05/28/22 03/13/23 finasteride 1 mg tablet 1 mg PO DAILY 05/28/22 03/13/23 ondansetron HCl 4 mg tablet 4 mg PO Q8H 05/28/22 03/13/23 propranolol 40 mg tablet 40 mg PO BID 05/28/22 03/13/23 venlafaxine 150 mg tablet,extended 150 mg PO DAILY 05/28/22 03/13/23 release 24 hr celecoxib 200 mg capsule (Celebrex) 200 mg PO DAILY 03/10/23 03/13/23 fluoxetine 20 mg capsule 20 mg PO DAILY 03/10/23 03/13/23 gabapentin 600 mg tablet 600 mg PO TID 03/10/23 03/13/23 omeprazole 40 mg capsule,delayed 40 mg PO DAILY 03/10/23 03/13/23 release quetiapine 100 mg tablet (Seroquel) 100 mg PO DAILY 03/10/23 03/13/23 sumatriptan succinate 100 mg See Rx Instructions PO .COMPLEX 03/10/23 03/13/23 tablet (Imitrex) trazodone 100 mg tablet 100 mg PO DAILY 03/10/23 03/13/23 buprenorphine 8 mg-naloxone 2 mg 3 tab sublingual DIRECTED 03/13/23 03/13/23 sublingual tablet clonidine HCl 0.2 mg tablet 0.2 mg PO BID 03/13/23 03/13/23 hydroxyzine pamoate 25 mg capsule 25 mg PO DIRECTED 03/13/23 03/13/23 Results & Data (ED) Vital Signs Vital Signs - 24 hr 03/13/23 13:59 03/13/23 14:02 03/13/23 14:00 Temperature 36.1 C L Temperature Source Oral Pulse Rate 44 L 54 L 45 L Pulse Rate from SpO2 Sensor 46 L Respiratory Rate 18 15 Respiratory Effort / Characteristics Non-Labored Spontaneous Respiratory Depth Shallow Blood Pressure 118/72 Blood Pressure Mean 87 Blood Pressure Position Lying Pulse Oximetry 96 99 Oxygen Delivery Method Room Air Room Air Sepsis Recent Fever Within 48 Hours No Sepsis New/Unexplained Change in Mental Status N/A Sepsis Action Taken by Nursing No Action Required End-Tidal CO2 03/13/23 14:15 03/13/23 14:29 03/13/23 14:30 Temperature Temperature Source Pulse Rate 40 L 38 L 36 L Pulse Rate from SpO2 Sensor 39 L 38 L 37 L Respiratory Rate 8 L 7 L 11 L Respiratory Effort / Characteristics Respiratory Depth Blood Pressure 139/82 Blood Pressure Mean 101 Blood Pressure Position Pulse Oximetry 97 99 100 Oxygen Delivery Method Room Air Room Air Room Air Sepsis Recent Fever Within 48 Hours Sepsis New/Unexplained Change in Mental Status Sepsis Action Taken by Nursing End-Tidal CO2 26 39 38 03/13/23 14:50 03/13/23 15:00 03/13/23 15:01 Temperature Temperature Source Pulse Rate 40 L 35 L 35 L Pulse Rate from SpO2 Sensor 41 L 36 L 35 L Respiratory Rate 12 11 L 10 L Respiratory Effort / Characteristics Respiratory Depth Blood Pressure 155/90 H 149/91 H Blood Pressure Mean 111 110 Blood Pressure Position Pulse Oximetry 100 100 100 Oxygen Delivery Method Room Air Room Air Room Air Sepsis Recent Fever Within 48 Hours Sepsis New/Unexplained Change in Mental Status Sepsis Action Taken by Nursing End-Tidal CO2 34 36 35 03/13/23 15:15 03/13/23 15:23 03/13/23 15:45 Temperature Temperature Source Pulse Rate 45 L 42 L 70 Pulse Rate from SpO2 Sensor 44 L Respiratory Rate 4 L 5 L 8 L Respiratory Effort / Characteristics Respiratory Depth Blood Pressure 162/107 H 132/89 142/90 H Blood Pressure Mean 125 103 107 Blood Pressure Position Pulse Oximetry 93 91 93 Oxygen Delivery Method Sepsis Recent Fever Within 48 Hours Sepsis New/Unexplained Change in Mental Status Sepsis Action Taken by Nursing End-Tidal CO2 38 15 29 03/13/23 16:01 Temperature Temperature Source Pulse Rate 49 L Pulse Rate from SpO2 Sensor Respiratory Rate 4 L Respiratory Effort / Characteristics Respiratory Depth Blood Pressure 140/85 Blood Pressure Mean 103 Blood Pressure Position Pulse Oximetry 100 Oxygen Delivery Method Sepsis Recent Fever Within 48 Hours Sepsis New/Unexplained Change in Mental Status Sepsis Action Taken by Nursing End-Tidal CO2 37 Home Medications Current Medication List: was personally reviewed by me Laboratory Data Attestation: I reviewed the patient's lab results. 03/13/23 14:18 03/13/23 14:18 Lab Results 03/13/23 03/13/23 03/13/23 Range/Units 14:18 14:18 14:18 WBC 7.09 (4.8-10.8) K/ul RBC 4.79 (4.70-6.10) M/uL Hgb 14.4 (14.0-18.0) g/dl Hct 40.5 L (42.0-52.0) % MCV 84.6 (80.0-100.0) fL MCH 30.1 (25.0-34.0) pg MCHC 35.6 (32.0-36.0) g/dL RDW Std Deviation 38.2 (36.4-46.3) fL RDW Coeff of Viky 12.4 (11.5-14.5) % Plt Count 190 (130-400) K/uL MPV 11.0 (9.4-12.4) fL Immature Gran % (Auto) 0.3 % Neut % (Auto) 62.6 % Lymph % (Auto) 27.5 % [place] % (Auto) 8.9 % Eos % (Auto) 0.6 % Baso % (Auto) 0.1 % Neut # (Auto) 4.44 (1.40-6.50) K/uL Lymph # (Auto) 1.95 (1.2-3.4) K/uL [place] # (Auto) 0.63 H (0.11-0.59) K/uL Eos # (Auto) 0.04 (0-0.50) K/uL Baso # (Auto) 0.01 (0-0.2) K/uL Immature Gran # (Auto) 0.02 (0.01-0.20) K/uL PT 11.6 (9.0-12.0) Seconds INR 1.1 (0.9-1.1) Sodium 137 (136-145) mmol/L Potassium 4.6 (3.5-5.1) mmol/L Chloride 102 (98-107) mmol/L Carbon Dioxide 27 (21-32) mmol/L Anion Gap 8 (3-11) BUN 20 (6-23) mg/dl Creatinine 1.15 (0.6-1.4) mg/dl Est Cr Clr Drug Dosing 84.8 ml/min Est GFR ( Amer) 89.8 ml/min Est GFR (Non-Af Amer) 77.5 ml/min BUN/Creatinine Ratio 17.4 (10-20) Glucose 111 H (70-99(Fasting)) mg/dl Calcium 9.5 (8.6-10.3) mg/dl Magnesium 2.1 (1.7-2.4) mg/dl Total Bilirubin 0.4 (0.2-1.0) mg/dl AST 26 (13-39) U/L ALT 19 (7-52) U/L Alkaline Phosphatase 57 (34-104) U/L Total Creatine Kinase 124 (30-223) U/L Troponin I High Sens 4.3 (0-20) pg/ml Total Protein 7.3 (6.0-8.3) gm/dl Albumin 4.5 (3.4-5.0) gm/dl Globulin 2.8 (2.5-4.0) gm/dl Albumin/Globulin Ratio 1.6 (0.9-2) Lipase 14 (11-82) U/L Salicylates (3.0-30) mg/dl Acetaminophen (10-30) ug/ml Ethyl Alcohol mg/dL (<10.0) mg/dl SARS-CoV-2, RNA, NAAT (NEGATIVE) 03/13/23 03/13/23 03/13/23 Range/Units 14:18 14:18 14:20 WBC (4.8-10.8) K/ul RBC (4.70-6.10) M/uL Hgb (14.0-18.0) g/dl Hct (42.0-52.0) % MCV (80.0-100.0) fL MCH (25.0-34.0) pg MCHC (32.0-36.0) g/dL RDW Std Deviation (36.4-46.3) fL RDW Coeff of Viky (11.5-14.5) % Plt Count (130-400) K/uL MPV (9.4-12.4) fL Immature Gran % (Auto) % Neut % (Auto) % Lymph % (Auto) % [place] % (Auto) % Eos % (Auto) % Baso % (Auto) % Neut # (Auto) (1.40-6.50) K/uL Lymph # (Auto) (1.2-3.4) K/uL [place] # (Auto) (0.11-0.59) K/uL Eos # (Auto) (0-0.50) K/uL Baso # (Auto) (0-0.2) K/uL Immature Gran # (Auto) (0.01-0.20) K/uL PT (9.0-12.0) Seconds INR (0.9-1.1) Sodium (136-145) mmol/L Potassium (3.5-5.1) mmol/L Chloride (98-107) mmol/L Carbon Dioxide (21-32) mmol/L Anion Gap (3-11) BUN (6-23) mg/dl Creatinine (0.6-1.4) mg/dl Est Cr Clr Drug Dosing ml/min Est GFR ( Amer) ml/min Est GFR (Non-Af Amer) ml/min BUN/Creatinine Ratio (10-20) Glucose (70-99(Fasting)) mg/dl Calcium (8.6-10.3) mg/dl Magnesium (1.7-2.4) mg/dl Total Bilirubin (0.2-1.0) mg/dl AST (13-39) U/L ALT (7-52) U/L Alkaline Phosphatase (34-104) U/L Total Creatine Kinase (30-223) U/L Troponin I High Sens (0-20) pg/ml Total Protein (6.0-8.3) gm/dl Albumin (3.4-5.0) gm/dl Globulin (2.5-4.0) gm/dl Albumin/Globulin Ratio (0.9-2) Lipase (11-82) U/L Salicylates < 3.0 L (3.0-30) mg/dl Acetaminophen < 3 L (10-30) ug/ml Ethyl Alcohol mg/dL < 10.0 (<10.0) mg/dl SARS-CoV-2, RNA, NAAT NEGATIVE (NEGATIVE) Administered Medications Enoxaparin Sodium (Enoxaparin Inj 40 Mg/0.4 Ml Syr) 40 mg SQ Q24H [place]INA Stop: 04/12/23 18:59 Last Admin: 03/13/23 19:52 Dose: 40 mg Documented By: GREGG Lactated Ringer's (Lr) 1,000 mls @ 100 mls/hr IV .Q10H [place] Stop: 03/14/23 12:14 Last Admin: 03/13/23 16:21 Dose: 100 mls/hr Documented By: KALSKAG Discontinued Medications Atropine Sulfate (Atropine Sulfate 0.1 Mg/Ml 10ml Syr) 0.5 mg IV NOW STA Stop: 03/13/23 14:15 Last Admin: 03/13/23 14:20 Dose: 0.5 mg Documented By: ERIK Sodium Chloride (Nss 1000ml) 1,000 mls @ 999 mls/hr IV .Q1H1M [place] Stop: 03/13/23 15:15 Last Infusion: 03/13/23 15:16 Dose: 0 mls/hr Documented By: Admin: 03/13/23 14:21 Dose: 999 mls/hr Documented By: ERIK Magnesium Sulfate/Dextrose (Magnesium Sulfate / D5w) 1 gm in 100 mls @ 300 mls/hr IV Q15M [place] Stop: 03/13/23 15:14 Last Infusion: 03/13/23 15:39 Dose: 0 mls/hr Documented By: Admin: 03/13/23 15:19 Dose: 300 mls/hr Documented By: Infusion: 03/13/23 15:19 Dose: 300 mls/hr Documented By: Admin: 03/13/23 15:02 Dose: 300 mls/hr Documented By: ERIK Calcium Gluconate () 1,000 mg in 60 mls @ 240 mls/hr IV Q15M [place] Stop: 03/13/23 15:14 Last Infusion: 03/13/23 16:15 Dose: 0 mls/hr Documented By: Admin: 03/13/23 15:56 Dose: 240 mls/hr Documented By: Infusion: 03/13/23 15:51 Dose: 240 mls/hr Documented By: Admin: 03/13/23 15:36 Dose: 240 mls/hr Documented By: KALSKAG Glucagon 5 mg/ Syringe 5 mls @ 1 mls/min IV NOW ONE Stop: 03/13/23 14:42 Last Admin: 03/13/23 15:36 Dose: 1 mls/min Documented By: KALSKAG Imaging Data Radiologist's Impression: Chest X-Ray 03/13/23 14:14 SINGLE VIEW CHEST CLINICAL HISTORY: Overdose FINDINGS: An AP, portable, upright chest radiograph is compared to study dated 07/12/2019. The cardiomediastinal silhouette is unremarkable. There is bibasilar scarring/atelectasis. The lungs and pleural spaces are otherwise clear. No pneumothorax is seen. The bony thorax is grossly intact. IMPRESSION: No active disease in the chest. ACT 112: Negative or not required by law. Electronically signed by: Fam Mistry M.D. 03/13/2023 5:[address] 03/13/23 14:15 CT SCAN OF THE CERVICAL SPINE CLINICAL HISTORY: Change in mental status. Overdose. COMPARISON STUDY: CT of the cervical spine dated 07/12/2019. TECHNIQUE: CT scan of the cervical spine is performed from the skull base to the upper thoracic spine. Images are reviewed in the axial, sagittal, and coronal planes. IV contrast was not administered for this examination. A dose lowering technique was utilized adhering to the principles of ALARA. CT DOSE: 1188.96 mGy.cm FINDINGS: Skeletal structures: The skeletal structures are well mineralized. There is no evidence of fracture or subluxation involving the cervical spine. Vertebral body height and alignment are maintained. Tiny anterior osteophytes are noted in the lower cervical spine. The odontoid process and lateral masses are intact. The atlantoaxial articulation is preserved. The spinous processes appear intact. Intervertebral discs: The disc spaces are well maintained. Central canal: Grossly patent. Soft tissues: The prevertebral and paraspinous soft tissues are within normal limits. Calvarium: The visualized calvarium at the skull base appears intact. Brain parenchyma: Partially visualized brain parenchyma at the skull base is within normal limits. Sinuses and mastoids: The visualized paranasal sinuses are clear. The mastoid air cells are well pneumatized. Lung apices: Clear as visualized. IMPRESSION: There is no evidence of fracture or subluxation involving the cervical spine. ACT 112: Negative or not required by law. Electronically signed by: Fam Mistry M.D. 03/13/2023 2:[address] 03/13/23 14:15 CT SCAN OF THE BRAIN WITHOUT IV CONTRAST CLINICAL HISTORY: Change in mental status. Overdose. COMPARISON STUDY: CT of the brain dated 07/12/2019. TECHNIQUE: Unenhanced axial CT scan of the brain is performed from the vertex to the skull base. A dose lowering technique was utilized adhering to the principles of ALARA. FINDINGS: Brain parenchyma: The brain parenchyma is normal in appearance. There is no hemorrhage, mass effect, or evidence of acute territorial ischemia by CT criteria. Green-white matter differentiation is preserved. No extra-axial fluid collection is seen. Ventricles, sulci, cisterns: Normal in configuration. Intracranial vasculature: The visualized intracranial vasculature at the skull base is normal in appearance. Calvarium: Unremarkable. Sinuses and mastoids: The visualized paranasal sinuses are clear. The mastoid air cells are well pneumatized. Orbits: The bony orbits are grossly intact. IMPRESSION: No acute intracranial abnormality. ACT 112: Negative or not required by law. Electronically signed by: Fam Mistry M.D. 03/13/2023 2:49 PM Clavicle X-Ray 03/13/23 14:17 RIGHT CLAVICLE 2 VIEWS CLINICAL HISTORY: Abrasion overlying the right clavicle. FINDINGS: 2 views of the right clavicle are obtained. No prior studies are available for comparison at the time of dictation. The skeletal structures are well-mineralized. There is no radiographic evidence of right clavicular fracture. The acromioclavicular and sternoclavicular joints appear maintained. The right shoulder joint is preserved. The overlying soft tissues are within normal limits. Visualized right upper lobe lung parenchyma appears clear. IMPRESSION: No acute bony abnormality is identified. Electronically signed by: Fam Mistry M.D. 03/13/2023 5:05 PM Ankle X-Ray 03/13/23 14:52 LEFT ANKLE 3 VIEWS CLINICAL HISTORY: Left ankle swelling. FINDINGS: 3 views of the left ankle are obtained. No prior studies are available for comparison at the time of dictation. The skeletal structures are well-minera lized. No fracture is seen at the ankle joint. There is a mildly displaced fracture through the mid to distal shaft of the fifth metatarsal. This is best seen on the lateral projection. The ankle mortise is intact. Soft tissue swelling is present around the ankle, greatest overlying the lateral malleolus. IMPRESSION: 1. Soft tissue swelling with no fracture seen at the ankle joint. 2. Mildly displaced fracture of the fifth metatarsal shaft as above. Electronically signed by: Fam Mistry M.D. 03/13/2023 4:55 PM Discharge Plan Visit Data Chief Complaint: Overdose (Intentional) ED Provider: Jose Lara Discharge Problem: Overdose, Fracture of 5th metatarsal, Bradycardia, Suicide attempt Patient Disposition: Admitted As Inpatient Discharge Instructions Interventions: ED Discharge Assessment Last Done: 03/13/23 18:50
[2023-03-13] MEDS ORDERED: ATROPINE SULFATE 0.1 MG/ML 10ML SYR IV STA (14:14)
[2023-03-13] MEDS ORDERED: SODIUM CHLORIDE 0.9% 1000ML 1,000 ML IV SCH (14:15)
[2023-03-13 14:33] LABS: Basophils # (auto) 0.01 K/uL (0-0.2); Basophils % (auto) 0.1 %; Eosinophils # (auto) 0.04 K/uL (0-0.50); Eosinophils % (auto) 0.6 %; Hematocrit (blood only) 40.5 % (42.0-52.0); Hemoglobin 14.4 g/dl (14.0-18.0); Immature Granulocytes # (auto) 0.02 K/uL (0.01-0.20); Immature Granulocytes % (auto) 0.3 %; Lymphocytes # (auto) 1.95 K/uL (1.2-3.4); Lymphocytes % (auto) 27.5 %; Mean Corpuscular Hemoglobin 30.1 pg (25.0-34.0); Mean Corpuscular Hgb Conc 35.6 g/dL (32.0-36.0); Mean Corpuscular Volume 84.6 fL (80.0-100.0); Monocytes # (auto) 0.63 K/uL (0.11-0.59); Monocytes % (auto) 8.9 %; Neutrophils # (auto) 4.44 K/uL (1.40-6.50); Neutrophils % (auto) 62.6 %; Platelet Count 190 K/uL (130-400); RDW Coefficient of Variation 12.4 % (11.5-14.5); RDW Standard Deviation 38.2 fL (36.4-46.3); Red Blood Count 4.79 M/uL (4.70-6.10); White Blood Count 7.09 K/ul (4.8-10.8)
[2023-03-13] MEDS ORDERED: MAGNESIUM SULFATE / D5W 1 GM/100 ML BAG IV SCH (14:37)
[2023-03-13] MEDS ORDERED: GLUCAGON 5 MG in SYRINGE 0 ML IV ONE (14:38)
[2023-03-13 14:45] LABS: Acetaminophen < 3 ug/ml (10-30); Salicylate < 3.0 mg/dl (3.0-30)
[2023-03-13 14:47] LABS: Albumin Globulin Ratio 1.6 (0.9-2); Albumin Level 4.5 gm/dl (3.4-5.0); BUN Creatinine Ratio 17.4 (10-20); Bilirubin,Total 0.4 mg/dl (0.2-1.0); Calcium 9.5 mg/dl (8.6-10.3); Creatinine Clr Calc Pharmacy 84.8 ml/min; Est GFR (African American) 89.8 ml/min; Est GFR (Non-African American) 77.5 ml/min; Globulin 2.8 gm/dl (2.5-4.0); Magnesium 2.1 mg/dl (1.7-2.4); Potassium 4.6 mmol/L (3.5-5.1); Total Protein 7.3 gm/dl (6.0-8.3)
--- NOTE | 2023-03-13 14:51 | CT Scan Report ---
CT SCAN OF THE BRAIN WITHOUT IV CONTRAST CLINICAL HISTORY: Change in mental status. Overdose. COMPARISON STUDY: CT of the brain dated 07/12/2019. TECHNIQUE: Unenhanced axial CT scan of the brain is performed from the vertex to the skull base. A d ose lowering technique was utilized adhering to the principles of ALARA. FINDINGS: Brain parenchyma: The brain parenchyma is normal in appearance. There is no hemorrhage, mass effect, or evidence of acute territorial ischemia by CT criteria. Green-white matter differentiation is preser ike. No extra-axial fluid collection is seen. Ventricles, sulci, cisterns: Normal in configuration. Intracranial vasculature: The visualized intracranial vasculature at the skull base is normal in appe arance. Calvarium: Unremarkable. Sinuses and mastoids: The visualized paranasal sinuses are clear. The mastoid air cells are well pneu matized. Orbits: The bony orbits are grossly intact. IMPRESSION: No acute intracranial abnormality. ACT 112: Negative or not required by law. Electronically signed by: Fam Mistry M.D. 03/13/2023 2:49 PM
[2023-03-13 14:53] LABS: Troponin I High Sensitivity 4.3 pg/ml (0-20)
--- NOTE | 2023-03-13 14:55 | CT Scan Report ---
CT SCAN OF THE CERVICAL SPINE CLINICAL HISTORY: Change in mental status. Overdose. COMPARISON STUDY: CT of the cervical spine dated 07/12/2019. TECHNIQUE: CT scan of the cervical spine is performed from the skull base to the upper thoracic spine . Images are reviewed in the axial, sagittal, and coronal planes. IV contrast was not administered fo r this examination. A dose lowering technique was utilized adhering to the principles of ALARA. CT DOSE: 1188.96 mGy.cm FINDINGS: Skeletal structures: The skeletal structures are well mineralized. There is no evidence of fracture o r subluxation involving the cervical spine. Vertebral body height and alignment are maintained. Tiny anterior osteophytes are noted in the lower cervical spine. The odontoid process and lateral masses a re intact. The atlantoaxial articulation is preserved. The spinous processes appear intact. Intervertebral discs: The disc spaces are well maintained. Central canal: Grossly patent. Soft tissues: The prevertebral and paraspinous soft tissues are within normal limits. Calvarium: The visualized calvarium at the skull base appears intact. Brain parenchyma: Partially visualized brain parenchyma at the skull base is within normal limits. Sinuses and mastoids: The visualized paranasal sinuses are clear. The mastoid air cells are well pneu matized. Lung apices: Clear as visualized. IMPRESSION: There is no evidence of fracture or subluxation involving the cervical spine. ACT 112: Negative or not required by law. Electronically signed by: Fam Mistry M.D. 03/13/2023 2:53 PM
[2023-03-13 14:56] LABS: INR 1.1 (0.9-1.1); Prothrombin Time 11.6 Seconds (9.0-12.0)
[2023-03-13] MEDS: MAGNESIUM SULFATE / D5W 1 GM/100 ML BAG IV SCH ×2 (15:02→15:19)
[2023-03-13] MEDS: CALCIUM GLUCONATE 1,000 MG/60 ML BAG IV SCH ×2 (15:36→15:56)
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
[2023-03-13] MEDS: LACTATED RINGER'S 1,000 ML IV SCH (16:21)
--- NOTE | 2023-03-13 16:56 | XRay Report ---
LEFT ANKLE 3 VIEWS CLINICAL HISTORY: Left ankle swelling. FINDINGS: 3 views of the left ankle are obtained. No prior studies are available for comparison at th e time of dictation. The skeletal structures are well-mineralized. No fracture is seen at the ankle j oint. There is a mildly displaced fracture through the mid to distal shaft of the fifth metatarsal. T his is best seen on the lateral projection. The ankle mortise is intact. Soft tissue swelling is pres ent around the ankle, greatest overlying the lateral malleolus. IMPRESSION: 1. Soft tissue swelling with no fracture seen at the ankle joint. 2. Mildly displaced fracture of the fifth metatarsal shaft as above. Electronically signed by: Fam Mistry M.D. 03/13/2023 4:55 PM
--- NOTE | 2023-03-13 17:04 | XRay Report ---
SINGLE VIEW CHEST CLINICAL HISTORY: Overdose FINDINGS: An AP, portable, upright chest radiograph is compared to study dated 07/12/2019. The cardio mediastinal silhouette is unremarkable. There is bibasilar scarring/atelectasis. The lungs and pleura l spaces are otherwise clear. No pneumothorax is seen. The bony thorax is grossly intact. IMPRESSION: No active disease in the chest. ACT 112: Negative or not required by law. Electronically signed by: Fam Mistry M.D. 03/13/2023 5:03 PM
--- NOTE | 2023-03-13 17:06 | XRay Report ---
RIGHT CLAVICLE 2 VIEWS CLINICAL HISTORY: Abrasion overlying the right clavicle. FINDINGS: 2 views of the right clavicle are obtained. No prior studies are available for comparison a t the time of dictation. The skeletal structures are well-mineralized. There is no radiographic evide nce of right clavicular fracture. The acromioclavicular and sternoclavicular joints appear maintained . The right shoulder joint is preserved. The overlying soft tissues are within normal limits. Visuali zed right upper lobe lung parenchyma appears clear. IMPRESSION: No acute bony abnormality is identified. Electronically signed by: Fam Mistry M.D. 03/13/2023 5:05 PM
[2023-03-13] MEDS: ENOXAPARIN INJ 40 MG/0.4 ML SYR SQ SCH (19:52)
[2023-03-13 21:31] LABS: Appearance Urine Clear (Clear); Bilirubin Urine Negative (Negative); Blood Urine Negative (Negative); Color Urine Yellow; Glucose Urine UA Negative (Negative); Ketones Urine Trace (Negative); Leukocyte Esterase Urine Negative (Negative); Nitrite Urine Negative (Negative); Protein Urine Negative (Negative); Specific Gravity Urine 1.021 (1.000-1.030); Urobilinogen Urine Negative (Negative)
[2023-03-13 22:07] LABS: Amphetamines+Metham, Urine Neg (Neg); Barbiturates, Urine Neg (Neg); Benzodiazepine, Urine Pos (Neg); Cocaine, Urine Neg (Neg); MDMA (Ecstacy), Urine Neg (Neg); Methadone, Urine Neg (Neg); Opiate, Urine Neg (Neg); Phencyclidine, Urine Neg (Neg)
--- NOTE | 2023-03-13 22:53 | XRay Report ---
LEFT FOOT 3 VIEWS CLINICAL HISTORY: Fifth metatarsal fracture. FINDINGS: 3 views of the left foot are correlated with radiographs of the left ankle performed the nc day 03/13/2023. The skeletal structures are well mineralized. There is a displaced oblique fracture through the mid to distal shaft of the fifth metatarsal with overlying soft tissue edema. No additio nal acute fracture is seen. The joint spaces of the foot are maintained. IMPRESSION: Fifth metatarsal shaft fracture as above. Electronically signed by: Fam Mistry M.D. 03/13/2023 10:52 PM
[2023-03-14] MEDS: LACTATED RINGER'S 1,000 ML IV SCH ×3 (02:21→21:23)
[2023-03-14 06:52] LABS: Basophils # (auto) 0.02 K/uL (0-0.2); Basophils % (auto) 0.3 %; Eosinophils # (auto) 0.04 K/uL (0-0.50); Eosinophils % (auto) 0.6 %; Hematocrit (blood only) 37.4 % (42.0-52.0); Hemoglobin 13.4 g/dl (14.0-18.0); Immature Granulocytes # (auto) 0.01 K/uL (0.01-0.20); Immature Granulocytes % (auto) 0.2 %; Lymphocytes # (auto) 2.33 K/uL (1.2-3.4); Lymphocytes % (auto) 36.3 %; Mean Corpuscular Hemoglobin 29.6 pg (25.0-34.0); Mean Corpuscular Hgb Conc 35.8 g/dL (32.0-36.0); Mean Corpuscular Volume 82.7 fL (80.0-100.0); Mean Platelet Volume 11.4 fL (9.4-12.4); Monocytes % (auto) 9.3 %; Neutrophils # (auto) 3.42 K/uL (1.40-6.50); Neutrophils % (auto) 53.3 %; Platelet Count 166 K/uL (130-400); RDW Coefficient of Variation 12.2 % (11.5-14.5); Red Blood Count 4.52 M/uL (4.70-6.10); White Blood Count 6.42 K/ul (4.8-10.8)
[2023-03-14 07:08] LABS: Albumin Globulin Ratio 1.6 (0.9-2); Albumin Level 3.9 gm/dl (3.4-5.0); BUN Creatinine Ratio 21.7 (10-20); Bilirubin,Total 0.4 mg/dl (0.2-1.0); Calcium 9.1 mg/dl (8.6-10.3); Creatinine Clr Calc Pharmacy 109.6 ml/min; Est GFR (African American) 117.6 ml/min; Est GFR (Non-African American) 101.5 ml/min; Globulin 2.4 gm/dl (2.5-4.0); Potassium 4.1 mmol/L (3.5-5.1); Total Protein 6.3 gm/dl (6.0-8.3)
[2023-03-14 07:17] LABS: Prothrombin Time 11.4 Seconds (9.0-12.0)
--- NOTE | 2023-03-14 07:31 | Hospitalist Progress Note ---
Date of Service March 14, 2023 Assessment & Plan (1) Fracture of 5th metatarsal: (2) Overdose: (3) Suicide attempt: (4) Fracture of fifth metatarsal bone of left foot: (5) Intentional drug overdose: (6) PTSD (post-traumatic stress disorder): (7) Opioid dependence: (8) Generalized anxiety disorder: (9) Depressive disorder: (10) Metabolic encephalopathy: Plan Intentional drug overdose Metabolic encephalopathy -Reported intentional overdose of barbiturates and benzos from EMS and ED staff. -Patient has a history of buying drugs online. -Chest x-ray, cervical spine CT, head CT, and clavicular x-ray on 03/13 were all negative. -Currently taking clonidine, Suboxone, trazodone, cyclobenzaprine, fluoxetine, gabapentin, propranolol, venlafaxine. -Has previously abused methamphetamine and benzos. -Toxicology negative for salicylates, acetaminophen, and alcohol. Urine positive for benzodiazepines, negative for barbiturates and other substances. Confirmation testing pending. -Poison control initially recommended monitoring QTc which was done discontinued on 03/14. -EKGs showed sinus bradycardia with heart rates in the 30s to 40s when sleeping and in 50s-60s when awake, will continue to monitor. -Given clinical stability, Narcan and flumazenil were held at time of admission. -N.p.o. at this time, on LR at 125 mL an hour. -Seizure precautions, suicide precautions, every 4 hour neurochecks, one-to-one. -We will hold all home meds at this time. -Psych consulted, recommend holding home meds and to resume Suboxone once clinically stable. Though unsure when patient last took Suboxone given negative urine toxicity. We will wait for final results. -CBC, BMP, mag, and PT/INR on 03/14 were all WNL. -Given Reglan on 03/14 for nausea. -We will have low threshold to put on MATHIEU protocol if seizures occur. Fracture of fifth metatarsal bone of left foot -Found to have a Mildly displaced fracture of the fifth metatarsal shaft on xray of the left ankle -While on suicide precautions will wait to place boot or cast -Orthopedics consult placed, appreciate recommendations -LLE non weight-bearing status until evaluated by Orthopedics -Hold any narcotic pain medications at this time to prevent further sedation/bradycardia/respiratory depression PTSD (post-traumatic stress disorder) -Hold all prescription medications at this time -Psych consult placed Opioid dependence -Is prescribed Suboxone 8-2 as recently as February 19 for opioid dependence -Negative buprenorphine level and monitor for withdrawal Generalized anxiety disorder -Currently prescribed Fluoxetine, hydroxyzine, propranolol, trazadone, and venlafaxine -Hold all medications for now, Psych consult -Monitor for sings of withdrawal Depressive disorder -See DENNIS -Suicide precautions ordered Admission and Anticipated Discharge Date Admission Date: March 13, 2023 Supervising Physician Co-Signing Physician Notes Attending attestation Pt seen and examined in concert with Dr. Moreno. In agreement with the documented findings as noted in the resident documentation with any exceptions or additions as noted here. Ongoing somnolence though improving in comparison to previous evaluation. Having some difficulty with urination subjectively, though some difficulty with mentation more than likely causative. No complaint of pain at time of examination. On examination, S1/S2 nl bradycardic no MCG. CTAB. Abd NT/ND BS+ve. Dry oropharynx, low skin turgor, patient w/ decreased POI at bedside. UDS +ve benzodiazepine with pending buprenorphine level Cr 0.92 CT and XR reviewed Metabolic encephalopathy in the setting of polysubstance use with concern for overdose - appears to be improving overall during admission, close monitoring for same Bradycardia - also gradually improving from 30s to 50s now without complaint of lightheadedness or similar Concern for dehydration - gentle IVF until tolerating POI well, monitor closely to avoid fluid overload h/o Suicidality int he setting of PTSD - psychiatric consultation appreciated Fx of the MT - pain well controlled at present Else see resident documentation as noted. Subjective Patient seen bedside today. States that he feels dizzy and has a headache. He also complains of nausea without any vomiting. States that he is very tired and wants to sleep. Review of Systems Review of Systems: All systems reviewed & are unremarkable except as noted in Subjective Physical Exam Physical Exam: Constitutional: well-appearing, no acute distress, lethargic HEENT: NCAT, no conjunctival injection CV: Bradycardic, regular rhythm, no murmur appreciated, extremities well- perfused, no LE edema Resp: CTABL, no wheezes/rales/rhonchi appreciated, no increased work of breathing GI: soft, nondistended, nontender, BS normoactive MSK: no gross deformities appreciated, tenderness in the left foot Skin: warm, dry, no rash appreciated Neuro: alert, oriented, no focal neurologic deficit appreciated Results & Data Results & Data Vital Signs (Past 12 Hours) Vital Signs Temp Pulse Pulse Resp BP Pulse Ox Pulse Ox 03/14/23 02:30 36.4 C L 55 L 12 107/72 97 03/13/23 23:59 51 L 03/13/23 22:49 36.3 C L 38 L 16 127/80 96 03/13/23 22:11 39 L 12 119/72 97 03/13/23 19:53 36.9 C 52 L 14 115/72 99 03/13/23 19:53 99 O2 Del Method O2 Del Method 03/14/23 02:30 Room Air 03/13/23 23:59 03/13/23 22:49 Room Air 03/13/23 22:11 Room Air 03/13/23 19:53 Room Air 03/13/23 19:53 Room Air Laboratory Results 03/14/23 06:08 03/14/23 06:08 Resident Activity Tracking Resident Involvement: Resident Care Provided Care Provided: Adult Hospital Medicine (1) Fracture of 5th metatarsal Encounter type: initial encounter Fracture type: closed Laterality: left Physeal involvement: involving physis Salter-Huizar Fracture Type: unspecified configuration Qualified Code(s): S99.102A - Unspecified physeal fracture of left metatarsal, initial encounter for closed fracture (2) Overdose Encounter type: initial encounter Injury intent: intentional self-harm Kamaljit lified Code(s): T50.902A - Poisoning by unspecified drugs, medicaments and b iological substances, intentional self-harm, initial encounter
[2023-03-14] MEDS ORDERED: ONDANSETRON INJ 2 MG/ML 2 ML VIAL IV STA (11:50)
[2023-03-14] MEDS ORDERED: METOCLOPRAMIDE HCL INJ 5 MG/ML 2 ML VIAL IV STA (11:57)
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
--- NOTE | 2023-03-14 13:42 | Electrocardiogram Report ---
Test Reason : Blood Pressure : / mmHG Vent. Rate : 042 BPM Atrial Rate : 042 BPM P-R Int : 180 ms QRS Dur : 090 ms QT Int : 538 ms P-R-T Axes : 036 -07 039 degrees QTc Int : 449 ms Marked sinus bradycardia T wave abnormality, consider anterior ischemia Abnormal ECG When compared with ECG of 14-JUL-2019 12:59, Vent. rate has decreased BY 45 BPM T wave inversion now evident in Anterior leads Confirmed by You Myers ([id number]) on 03/14/2023 1:42:15 PM Referred By: Confirmed By:You Myers
[2023-03-14] MEDS ORDERED: MAGNESIUM HYDROXIDE SUSP 30 ML UDC PO PRN (19:32)
[2023-03-14] MEDS: ENOXAPARIN INJ 40 MG/0.4 ML SYR SQ SCH (19:44)
[2023-03-14] MEDS ORDERED: METOCLOPRAMIDE HCL INJ 5 MG/ML 2 ML VIAL IV PRN (20:52)
[2023-03-14] MEDS ORDERED: ONDANSETRON INJ 2 MG/ML 2 ML VIAL IV PRN (20:52)
--- NOTE | 2023-03-14 22:16 | Orthopedic Consultation ---
Date of Consultation March 14, 2023 Assessment & Plan (1) Fracture of 5th metatarsal: Will initiate nonoperative conservative management of immobilization with nonweightbearing left foot for a period of 6 weeks if approved by psych service and medical team. Consider 81 mg aspirin 1 p.o. daily x6 weeks if approved by psych service and medical team. Ice and elevation left foot. Follow-up with Dr. Deleon in 5 to 6 weeks at [facility] [phone] Thank you for the opportunity to consult in the care of this patient, Trent Deleon DO [facility] (2) Overdose: (3) Metabolic encephalopathy: (4) Suicide attempt: History of Present Illness Reason for Consultation: This is a 42-year-old male seen at the request of Dr. Steele from the medical team as the patient presented with hypersomnolence and sedation as reported by his roommate for the last several days. Patient was transported to [facility] via EMS where he was evaluated and per alleged patient testimony, he had overdosed on Xanax and barbiturates. Patient was then admitted to the hospitalist service and he complained of left foot pain which was evaluated radiographically noting a displaced oblique midshaft fifth metatarsal fracture. Medical team preferred to avoid any type of application of boot or cast as the patient was placed on a one-to-one for possible suicidal attempt with questionable suicidal ideation. When questioned regarding the etiology of the left foot injury, the patient thinks that he may have sustained a ground-level fall however he is uncertain. Requesting Physician: Johnnie Steele MD Attending Physician: Gilles Porras DO Allergies Allergy/AdvReac Type Severity Reaction Status Date / Time chlorpromazine Allergy Verified 03/10/23 10:32 [From Thorazine] Home Medications Medication Instructions Recorded Confirmed Type cyclobenzaprine 10 mg tablet 10 mg PO HS 05/28/22 03/13/23 History docusate sodium 250 mg capsule 250 mg PO DAILY 05/28/22 03/13/23 History finasteride 1 mg tablet 1 mg PO DAILY 05/28/22 03/13/23 History ondansetron HCl 4 mg tablet 4 mg PO Q8H 05/28/22 03/13/23 History propranolol 40 mg tablet 40 mg PO BID 05/28/22 03/13/23 History venlafaxine 150 mg tablet,extended 150 mg PO DAILY 05/28/22 03/13/23 History release 24 hr celecoxib 200 mg capsule (Celebrex) 200 mg PO DAILY 03/10/23 03/13/23 History fluoxetine 20 mg capsule 20 mg PO DAILY 03/10/23 03/13/23 History gabapentin 600 mg tablet 600 mg PO TID 03/10/23 03/13/23 History omeprazole 40 mg capsule,delayed 40 mg PO DAILY 03/10/23 03/13/23 History release quetiapine 100 mg tablet (Seroquel) 100 mg PO DAILY 03/10/23 03/13/23 History sumatriptan succinate 100 mg See Rx Instructions PO .COMPLEX 03/10/23 03/13/23 History tablet (Imitrex) trazodone 100 mg tablet 100 mg PO DAILY 03/10/23 03/13/23 History buprenorphine 8 mg-naloxone 2 mg 3 tab sublingual DIRECTED 03/13/23 03/13/23 History sublingual tablet clonidine HCl 0.2 mg tablet 0.2 mg PO BID 03/13/23 03/13/23 History hydroxyzine pamoate 25 mg capsule 25 mg PO DIRECTED 03/13/23 03/13/23 History Patient History Medical History Anemia Anxiety Closed right femoral fracture Requiring open reduction and internal fixation with intramedullary demetrice 07/12/19 Depression Depressive disorder (04/01/11) Exercise-induced asthma Gastritis Generalized anxiety disorder (04/01/11) History of Lyme disease Migraines Opioid dependence (04/01/11) Psychotic disorder (04/01/11) PTSD (post-traumatic stress disorder) Seasonal allergies Substance abuse Tobacco use Surgical History H/O knee surgery History of surgery on lower extremity Hx of cholecystectomy Family History Father Hypertension Dyslipidemia Heart disease Other No significant family history Social History Smoking Status: Unknown if ever smoked Do You Dip or Chew Tobacco: Yes (1 can q2-3days); Hx Substance Use: Yes Last Used Substance Other:: pt denies recent drug use Substance Use Type Other:: unknown Preferred Language: Irish Communication Ability: Impaired Composition Professor Required: No Beliefs That Will Affect Care: None marital status: Current Living Situation: Other Current Living Situation Comment: with2 friends Feels Safe at Home: Yes Assistive Devices: None Physical Exam Constitutional: WD/WN, vitals as above Neck: trachea midline, no thyromegaly Respiratory: Symmetric chest movement. No rales or rhonchi. Gastrointestinal (Abdomen): Soft nontender and nondistended. Musculoskeletal: Left foot skin is warm, dry and intact. Edema left foot lateral aspect compared to nonaffected right foot. Distal neurovascular status is intact bilateral feet. Pedal pulses are palpable bilateral lower extremities. Cap refill is brisk. Local edema left lateral foot. Positive tenderness to palpation left fifth metatarsal. Limited strength and range of motion due to moderate guarding left foot. Neurologic: Obvious confusion. Labile affect. Tearful at times during normal conversation regarding the condition of his left foot. Psychiatric: Labile affect. Intermittent confusion. Lack of insight. Results & Data Vital Signs (Past 12 Hours) Vital Signs Temp Pulse Pulse Pulse Resp BP Pulse Ox 03/14/23 19:35 03/14/23 19:35 03/14/23 19:27 36.6 C 46 L 14 138/81 97 03/14/23 16:12 36.5 C 60 16 124/77 97 03/14/23 12:10 36.7 C 59 L 18 114/63 97 03/14/23 16:09 60 O2 Del Method O2 Del Method 03/14/23 19:35 Room Air 03/14/23 19:35 Room Air 03/14/23 19:27 Room Air 03/14/23 16:12 Room Air 03/14/23 12:10 Room Air 03/14/23 16:09 Diagnostic Findings Radiographs of the left foot demonstrate oblique displaced midshaft left fifth metatarsal fracture. No other associated fractures. Soft tissue swelling evidence. (1) Fracture of 5th metatarsal Encounter type: initial encounter Fracture type: closed Laterality: left Physeal involvement: involving physis Salter-Huizar Fracture Type: unspecified configuration Qualified Code(s): S99.102A - Unspecified physeal fracture of left metatarsal, initial encounter for closed fracture (2) Overdose Encounter type: initial encounter Injury intent: intentional self-harm Qualified Code(s): T50.902A - Poisoning by unspecified drugs, medicaments and biological substances, intentional self-harm, initial encounter
[2023-03-15] MEDS: ACETAMINOPHEN 1,000 MG/100 ML VIAL IV PRN ×3 (00:15→18:53)
[2023-03-15] MEDS ORDERED: KETOROLAC TROMETHAMINE 15 MG/ML VIAL IV ONE ×2 (04:21→09:48)
[2023-03-15 06:34] LABS: Basophils # (auto) 0.02 K/uL (0-0.2); Basophils % (auto) 0.3 %; Eosinophils # (auto) 0.06 K/uL (0-0.50); Eosinophils % (auto) 0.8 %; Hematocrit (blood only) 34.4 % (42.0-52.0); Hemoglobin 12.1 g/dl (14.0-18.0); Immature Granulocytes # (auto) 0.01 K/uL (0.01-0.20); Immature Granulocytes % (auto) 0.1 %; Lymphocytes # (auto) 2.25 K/uL (1.2-3.4); Lymphocytes % (auto) 30.5 %; Mean Corpuscular Hemoglobin 29.5 pg (25.0-34.0); Mean Corpuscular Hgb Conc 35.2 g/dL (32.0-36.0); Mean Corpuscular Volume 83.9 fL (80.0-100.0); Mean Platelet Volume 11.4 fL (9.4-12.4); Monocytes # (auto) 0.71 K/uL (0.11-0.59); Monocytes % (auto) 9.6 %; Neutrophils # (auto) 4.33 K/uL (1.40-6.50); Neutrophils % (auto) 58.7 %; Platelet Count 141 K/uL (130-400); RDW Standard Deviation 36.4 fL (36.4-46.3); White Blood Count 7.38 K/ul (4.8-10.8)
[2023-03-15 06:38] LABS: Albumin Globulin Ratio 1.7 (0.9-2); Albumin Level 3.7 gm/dl (3.4-5.0); BUN Creatinine Ratio 17.2 (10-20); Bilirubin,Total 0.5 mg/dl (0.2-1.0); Calcium 8.7 mg/dl (8.6-10.3); Creatinine Clr Calc Pharmacy 101.8 ml/min; Est GFR (African American) 107.7 ml/min; Est GFR (Non-African American) 92.9 ml/min; Globulin 2.2 gm/dl (2.5-4.0); Magnesium 1.9 mg/dl (1.7-2.4); Potassium 3.8 mmol/L (3.5-5.1); Total Protein 5.9 gm/dl (6.0-8.3)
[2023-03-15 06:58] LABS: INR 1.1 (0.9-1.1); Prothrombin Time 11.9 Seconds (9.0-12.0)
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
--- NOTE | 2023-03-15 12:12 | Communication Note ---
Date of Service: March 15, 2023 interim progress reviewed, discussed with liaison nurse. Patient remains highly emotional, worried about potential for withdrawal from benzos (VSS) and subo xone. Diet is being advanced. He's still having some urinary retention and requiring straight cath. as far as his displaced metatarsal fracture, he cannot have an gabriela wrap type bandage or a splint with laces or metal. As far as weight bearing status, canes/crutches are not allowed on most units but could be given permission for walker. Will follow.
--- NOTE | 2023-03-15 12:26 | Electrocardiogram Report ---
Test Reason : Blood Pressure : / mmHG Vent. Rate : 054 BPM Atrial Rate : 054 BPM P-R Int : 184 ms QRS Dur : 106 ms QT Int : 516 ms P-R-T Axes : 033 -06 032 degrees QTc Int : 489 ms Sinus bradycardia Nonspecific T wave abnormality Prolonged QT Abnormal ECG When compared with ECG of 13-MAR-2023 13:58, T wave inversion less evident in Anterior leads Confirmed by You Myers ([id number]) on 03/15/2023 12:26:26 PM Referred By: REFERRED SELF Confirmed By:You Myers
--- NOTE | 2023-03-15 12:27 | Electrocardiogram Report ---
Test Reason : Blood Pressure : / mmHG Vent. Rate : 039 BPM Atrial Rate : 039 BPM P-R Int : 178 ms QRS Dur : 094 ms QT Int : 556 ms P-R-T Axes : 048 -03 020 degrees QTc Int : 447 ms Marked sinus bradycardia T wave abnormality, consider lateral ischemia Abnormal ECG When compared with ECG of 13-MAR-2023 15:30, (unconfirmed) T wave inversion now evident in Lateral leads Confirmed by You Myers ([id number]) on 03/15/2023 12:26:36 PM Referred By: REFERRED SELF Confirmed By:You Myers
--- NOTE | 2023-03-15 12:32 | Electrocardiogram Report ---
Test Reason : Blood Pressure : / mmHG Vent. Rate : 056 BPM Atrial Rate : 056 BPM P-R Int : 174 ms QRS Dur : 090 ms QT Int : 490 ms P-R-T Axes : 044 -18 033 degrees QTc Int : 472 ms Sinus bradycardia T wave abnormality, consider anterior ischemia Prolonged QT Abnormal ECG When compared with ECG of 13-MAR-2023 21:45, (unconfirmed) No significant change was found Confirmed by You Myers ([id number]) on 03/15/2023 12:32:33 PM Referred By: REFERRED SELF Confirmed By:You Myers
--- NOTE | 2023-03-15 12:32 | Electrocardiogram Report ---
Test Reason : Blood Pressure : / mmHG Vent. Rate : 055 BPM Atrial Rate : 055 BPM P-R Int : 170 ms QRS Dur : 088 ms QT Int : 480 ms P-R-T Axes : 083 -11 051 degrees QTc Int : 459 ms Sinus bradycardia T wave abnormality, consider anterior ischemia Abnormal ECG When compared with ECG of 14-MAR-2023 02:08, (unconfirmed) No significant change was found Confirmed by You Myers ([id number]) on 03/15/2023 12:32:17 PM Referred By: REFERRED SELF Confirmed By:You Myers
--- NOTE | 2023-03-15 12:32 | Electrocardiogram Report ---
Test Reason : Blood Pressure : / mmHG Vent. Rate : 043 BPM Atrial Rate : 043 BPM P-R Int : 176 ms QRS Dur : 090 ms QT Int : 562 ms P-R-T Axes : 045 002 042 degrees QTc Int : 474 ms Marked sinus bradycardia T wave abnormality, consider anterior ischemia Prolonged QT Abnormal ECG When compared with ECG of 13-MAR-2023 15:30, (unconfirmed) No significant change was found Confirmed by You Myers ([id number]) on 03/15/2023 12:31:44 PM Referred By: REFERRED SELF Confirmed By:You Myers
--- NOTE | 2023-03-15 12:54 | Electrocardiogram Report ---
Test Reason : Blood Pressure : / mmHG Vent. Rate : 043 BPM Atrial Rate : 043 BPM P-R Int : 168 ms QRS Dur : 088 ms QT Int : 508 ms P-R-T Axes : 040 -09 029 degrees QTc Int : 429 ms Marked sinus bradycardia Nonspecific T wave abnormality Abnormal ECG When compared with ECG of 14-MAR-2023 05:36, (unconfirmed) No significant change Confirmed by You Myers ([id number]) on 03/15/2023 12:54:05 PM Referred By: REFERRED SELF Confirmed By:You Myers
--- NOTE | 2023-03-15 14:17 | Orthopedic Progress Note ---
Date of Service March 15, 2023 Assessment & Plan (1) Fracture of 5th metatarsal: Plan: Will initiate nonoperative conservative management of immobilization with nonweightbearing left foot for a period of 6 weeks if approved by psych service and medical team. Short leg posterior Ortho-Glass splint applied for treatment of left displaced midshaft fifth metatarsal fracture. Maintain splint intact and do not remove unless patient otherwise at risk for significant harm. I did prefer to place a cylindrical cast however with the patient's recent suicidal attempt I opted for placement of a splint for ease of removal by medical professional as necessary. Consider 81 mg aspirin 1 p.o. daily x6 weeks for DVT prophylaxis if approved by psych service and medical team. Ice and elevation left foot. Follow-up with Dr. Deleon in 5 to [address] [facility] [phone] Thank you for the opportunity to consult in the care of this patient, Trent Deleon DO [facility] (2) Overdose: (3) Metabolic encephalopathy: (4) Suicide attempt: Admission and Anticipated Discharge Date Admission Date: March 13, 2023 Subjective Patient again confused and intermittently tearful at bedside this morning. Wants to go home. Somewhat more alert compared to yesterday examination. One-to-one nurse present to answer questions. Denies any CP or SOB. Has occasional left foot pain with pressure. Physical Exam Constitutional: WD/WN, vitals as above Neck: trachea midline, no thyromegaly Musculoskeletal: Left foot skin warm dry intact. Mild edema lateral left foot. Positive tender to palpation along the entirety of the left fifth metatarsal. No palpable crepitation left foot. Distal neurovascular status intact bilateral feet. Cap refill less than 2 seconds. DP/PT 2/4 bilateral feet. Slight limitation in active and passive range of motion left foot due to pain and guarding related to fifth metatarsal fracture. Calves soft and nontender. Psychiatric: Continued confused mentation however somewhat improved compared to yesterday. Insight poor. Results & Data Vital Signs (Past 12 Hours) Vital Signs Temp Pulse Pulse Resp BP Pulse Ox O2 Del Method 03/15/23 07:00 36.5 C 55 L 18 126/68 96 Room Air 03/15/23 07:00 Room Air 03/15/23 10:59 36.6 C 77 20 139/88 98 Room Air 03/15/23 03:26 36.6 C 47 L 16 111/69 98 Room Air (1) Fracture of 5th metatarsal Encounter type: initial encounter Fracture type: closed Laterality: left Physeal involvement: involving physis Salter-Huizar Fracture Type: unspecified configuration Qualified Code(s): S99.102A - Unspecified physeal fracture of left metatarsal, initial encounter for closed fracture (2) Overdose Encounter type: initial encounter Injury intent: intentional self-harm Qualified Code(s): T50.902A - Poisoning by unspecified drugs, medicaments and biological substances, intentional self-harm, initial encounter
[2023-03-15] MEDS ORDERED: GABAPENTIN 600 MG TAB PO STA (18:24)
--- NOTE | 2023-03-15 18:45 | Billing Data ---
Date of Service March 15, 2023 Coding Level of Care Code 17006 SUB INP/OBS CARE MIN
[2023-03-15] MEDS: GABAPENTIN 300 MG CAP PO SCH (20:14)
[2023-03-15] MEDS: ENOXAPARIN INJ 40 MG/0.4 ML SYR SQ SCH (20:19)
[2023-03-16] MEDS: ACETAMINOPHEN 325 MG TAB PO PRN ×2 (04:15→20:35)
[2023-03-16 06:59] LABS: Basophils # (auto) 0.02 K/uL (0-0.2); Basophils % (auto) 0.2 %; Eosinophils # (auto) 0.01 K/uL (0-0.50); Eosinophils % (auto) 0.1 %; Hematocrit (blood only) 39.2 % (42.0-52.0); Hemoglobin 13.9 g/dl (14.0-18.0); Immature Granulocytes # (auto) 0.05 K/uL (0.01-0.20); Immature Granulocytes % (auto) 0.5 %; Lymphocytes # (auto) 1.94 K/uL (1.2-3.4); Lymphocytes % (auto) 19.1 %; Mean Corpuscular Hemoglobin 29.7 pg (25.0-34.0); Mean Corpuscular Hgb Conc 35.5 g/dL (32.0-36.0); Mean Corpuscular Volume 83.8 fL (80.0-100.0); Mean Platelet Volume 10.5 fL (9.4-12.4); Monocytes # (auto) 1.01 K/uL (0.11-0.59); Neutrophils # (auto) 7.12 K/uL (1.40-6.50); Neutrophils % (auto) 70.1 %; Platelet Count 150 K/uL (130-400); RDW Coefficient of Variation 12.1 % (11.5-14.5); RDW Standard Deviation 36.6 fL (36.4-46.3); Red Blood Count 4.68 M/uL (4.70-6.10); White Blood Count 10.15 K/ul (4.8-10.8)
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
[2023-03-16 07:09] LABS: Albumin Globulin Ratio 1.5 (0.9-2); Albumin Level 4.2 gm/dl (3.4-5.0); Bilirubin,Total 0.8 mg/dl (0.2-1.0); Calcium 9.2 mg/dl (8.6-10.3); Creatinine Clr Calc Pharmacy 91.6 ml/min; Est GFR (African American) 94.8 ml/min; Est GFR (Non-African American) 81.8 ml/min; Globulin 2.8 gm/dl (2.5-4.0); Magnesium 2.1 mg/dl (1.7-2.4); Potassium 3.8 mmol/L (3.5-5.1)
[2023-03-16 07:19] LABS: INR 1.1 (0.9-1.1); Prothrombin Time 11.8 Seconds (9.0-12.0)
[2023-03-16] MEDS: GABAPENTIN 300 MG CAP PO SCH ×3 (08:36→20:36)
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
--- NOTE | 2023-03-16 13:04 | Communication Note ---
Date of Service: March 16, 2023 rounded on patient for 2nd time today, awake, tearful, now stating that he knows that he cannot leave the hospital. States that although he wasn't intentionally trying to harm himself that his drug use is "out of control" and he worries about dying, ongoing grief over loss of boyfriend. Is not agreeable to probation involvement even after explaining rationale. He is agreeable to rehab referral when medically cleared, has a specific facility he is interested in and liaison attempted to call to review their availability and criteria to refer when able. He would like to resume Seroquel as traditionally helpful for anxiety/sleep/mood lability.
[2023-03-16] MEDS: ONDANSETRON 4 MG OD TAB PO PRN ×2 (14:09→20:35)
[2023-03-16] MEDS: QUEtiapine FUMARATE 25 MG TABLET PO PRN ×2 (16:37→23:20)
--- NOTE | 2023-03-16 18:23 | Billing Data ---
Date of Service March 16, 2023 Coding Level of Care Code 73585 SUB INP/OBS CARE MIN
[2023-03-16] MEDS: ENOXAPARIN INJ 40 MG/0.4 ML SYR SQ SCH (20:36)
[2023-03-16] MEDS ORDERED: QUEtiapine FUMARATE 25 MG TABLET PO SCH (21:00)
[2023-03-17] MEDS: ACETAMINOPHEN 325 MG TAB PO PRN ×3 (03:09→21:09)
[2023-03-17] MEDS: QUEtiapine FUMARATE 25 MG TABLET PO PRN ×3 (03:10→12:45)
[2023-03-17 04:12] LABS: 7-Aminoclonaz, Confirm NEGATIVE ng/mL (<25); Hydro-Alp Ur, GC/MS NEGATIVE ng/mL (<25); Hydroxyethylflurazepam, Conf NEGATIVE ng/mL (<50); Hydroxymidazolam Ur, GC/MS NEGATIVE ng/mL (<50); Hydroxytriazolam NEGATIVE ng/mL (<50); Lorazepam, Ur GC/MS NEGATIVE ng/mL (<50); Nordiazepam, Confirm NEGATIVE ng/mL (<50); Oxazepam Ur, GC/MS 790 ng/mL (<50); Temazepam, Confirm NEGATIVE ng/mL (<50)
[2023-03-17 06:33] LABS: Hemoglobin 12.7 g/dl (14.0-18.0); Mean Corpuscular Hemoglobin 29.7 pg (25.0-34.0); Mean Corpuscular Hgb Conc 35.3 g/dL (32.0-36.0); Mean Corpuscular Volume 84.1 fL (80.0-100.0); Mean Platelet Volume 10.5 fL (9.4-12.4); Platelet Count 147 K/uL (130-400); RDW Coefficient of Variation 12.1 % (11.5-14.5); RDW Standard Deviation 37.1 fL (36.4-46.3); Red Blood Count 4.28 M/uL (4.70-6.10); White Blood Count 7.26 K/ul (4.8-10.8)
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
[2023-03-17 07:11] LABS: Albumin Globulin Ratio 1.5 (0.9-2); Bilirubin,Total 0.5 mg/dl (0.2-1.0); Calcium 9.1 mg/dl (8.6-10.3); Creatinine Clr Calc Pharmacy 98.7 ml/min; Est GFR (African American) 106.4 ml/min; Est GFR (Non-African American) 91.8 ml/min; Globulin 2.6 gm/dl (2.5-4.0); Potassium 3.8 mmol/L (3.5-5.1); Total Protein 6.6 gm/dl (6.0-8.3)
[2023-03-17] MEDS: GABAPENTIN 300 MG CAP PO SCH ×3 (07:53→21:10)
[2023-03-17 09:33] LABS: Buprenorphine, Ur Quant 72 ng/mL (<5); Buprenorphine, Ur Quant 76 ng/mL (<5); Confirmatory Facility DNR; Norbuprenorphine, Ur Qnt 298 ng/mL (<5)
[2023-03-17] MEDS ORDERED: BUPRENORPHINE/NALOXONE 8/2 MG TAB SL ONE (14:00)
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
--- NOTE | 2023-03-17 16:42 | Billing Data ---
Date of Service March 17, 2023 Coding Level of Care Code 93503 SUB INP/OBS CARE
[2023-03-17] MEDS: ENOXAPARIN INJ 40 MG/0.4 ML SYR SQ SCH (21:10)
[2023-03-17] MEDS: QUEtiapine FUMARATE 100 MG TABLET PO SCH (21:11)
[2023-03-17] MEDS: MELATONIN 3 MG TAB PO PRN (22:26)
[2023-03-18 07:01] LABS: Hematocrit (blood only) 36.5 % (42.0-52.0); Hemoglobin 12.9 g/dl (14.0-18.0); Mean Corpuscular Hemoglobin 29.7 pg (25.0-34.0); Mean Corpuscular Hgb Conc 35.3 g/dL (32.0-36.0); Mean Corpuscular Volume 83.9 fL (80.0-100.0); Mean Platelet Volume 10.8 fL (9.4-12.4); Platelet Count 170 K/uL (130-400); Red Blood Count 4.35 M/uL (4.70-6.10); White Blood Count 7.79 K/ul (4.8-10.8)
[2023-03-18 07:21] LABS: Albumin Globulin Ratio 1.4 (0.9-2); Albumin Level 3.9 gm/dl (3.4-5.0); BUN Creatinine Ratio 7.1 (10-20); Bilirubin,Total 0.4 mg/dl (0.2-1.0); Calcium 9.3 mg/dl (8.6-10.3); Creatinine Clr Calc Pharmacy 116.1 ml/min; Est GFR (African American) 123.7 ml/min; Est GFR (Non-African American) 106.7 ml/min; Globulin 2.7 gm/dl (2.5-4.0); Phosphorus 4.4 mg/dl (2.5-4.9); Potassium 3.5 mmol/L (3.5-5.1); Total Protein 6.6 gm/dl (6.0-8.3)
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
[2023-03-18] MEDS: GABAPENTIN 300 MG CAP PO SCH ×3 (08:30→19:44)
[2023-03-18] MEDS: QUEtiapine FUMARATE 25 MG TABLET PO PRN ×2 (08:30→14:06)
[2023-03-18] MEDS: BUPRENORPHINE/NALOXONE 8/2 MG TAB SL SCH ×2 (08:37→19:48)
[2023-03-18] MEDS: ACETAMINOPHEN 325 MG TAB PO PRN (11:41)
[2023-03-18] MEDS ORDERED: BUPRENORPHINE/NALOXONE 8/2 MG TAB SL STA (15:27)
[2023-03-18] MEDS: NICOTINE 21 MG/24 HR TDSY TD SCH (15:53)
--- NOTE | 2023-03-18 17:22 | Billing Data ---
Date of Service March 18, 2023 Coding Level of Care Code 35420 SUB INP/OBS CARE MIN
[2023-03-18] MEDS: QUEtiapine FUMARATE 100 MG TABLET PO SCH (19:43)
[2023-03-18] MEDS: ENOXAPARIN INJ 40 MG/0.4 ML SYR SQ SCH (19:44)
[2023-03-18] MEDS: MELATONIN 3 MG TAB PO PRN (21:04)
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
[2023-03-19] MEDS: QUEtiapine FUMARATE 25 MG TABLET PO PRN (07:31)
[2023-03-19] MEDS: GABAPENTIN 300 MG CAP PO SCH ×2 (07:31→14:39)
[2023-03-19] MEDS: NICOTINE 21 MG/24 HR TDSY TD SCH (07:32)
[2023-03-19] MEDS: BUPRENORPHINE/NALOXONE 8/2 MG TAB SL SCH (07:36)
[2023-03-19 09:23] LABS: Hematocrit (blood only) 35.5 % (42.0-52.0); Hemoglobin 12.4 g/dl (14.0-18.0); Mean Corpuscular Hemoglobin 29.7 pg (25.0-34.0); Mean Corpuscular Hgb Conc 34.9 g/dL (32.0-36.0); Mean Corpuscular Volume 85.1 fL (80.0-100.0); Mean Platelet Volume 10.5 fL (9.4-12.4); Platelet Count 178 K/uL (130-400); RDW Coefficient of Variation 11.9 % (11.5-14.5); RDW Standard Deviation 36.5 fL (36.4-46.3); Red Blood Count 4.17 M/uL (4.70-6.10); White Blood Count 3.87 K/ul (4.8-10.8)
[2023-03-19 09:28] LABS: Albumin Globulin Ratio 1.4 (0.9-2); Albumin Level 3.9 gm/dl (3.4-5.0); BUN Creatinine Ratio 6.3 (10-20); Bilirubin,Total 0.3 mg/dl (0.2-1.0); Calcium 9.2 mg/dl (8.6-10.3); Creatinine Clr Calc Pharmacy 124.9 ml/min; Est GFR (African American) 127.5 ml/min; Globulin 2.8 gm/dl (2.5-4.0); Magnesium 1.9 mg/dl (1.7-2.4); Phosphorus 3.9 mg/dl (2.5-4.9); Potassium 3.3 mmol/L (3.5-5.1); Total Protein 6.7 gm/dl (6.0-8.3)
[2023-03-19] MEDS ORDERED: POTASSIUM CHLORIDE CRTAB 20 MEQ TABCR PO STA (09:31)
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
[2023-03-19] MEDS ORDERED: BUPRENORPHINE/NALOXONE 8/2 MG TAB SL SCH (14:00)
--- NOTE | 2023-03-19 16:31 | Billing Data ---
Date of Service March 19, 2023 Coding Level of Care Code 37287 IN/OBS DISCH 30 MIN/LESS
== END 2023-03-19 17:24 | disposition home or self-care (01) | DRG 917 ==
LOC: ED 13:46 → SUATTDRO 16:08 → 2S 16:08